=== PATIENT | female | born 1995 | race Caucasian/White ===

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

== ENCOUNTER 2017-01-15 11:36 | Emergency (ER) | payer SELFPAY ==
[2017-01-15 12:19] VITALS: BP 126/74
--- NOTE | 2017-01-15 12:56 | UC ---
Throat Pain/Nasal Vivek HPI - HPI Summary HPI Summary: 21 y/o female presents to the urgent care c/o sore throat, nasal congestion for the past 5 days. Pt reports she has sinus tenderness with mild HOLT. for the past 2 days she has decrease appetite with nausea and 2 episodes of vomiting. LMP 01/11/2017, she still has her period. She states last time she was here with an URI she got IV fluids b/c she was dehydrated with N/V. Her nasal congestion has a yellowish nasal discharge, subjective fever at home and dry cough. Pt denies SOB , chest pain, dizziness, abdominal pain, diarrhea or constipation. - History of Current Complaint Chief Complaint: UCRespiratory Stated Complaint: NAUSEA,DIZZINESS,COUGH Time Seen by Provider: 01/15/17 12:43 Hx Obtained From: Patient Hx Last Menstrual Period: 01/11/17 ?: No Onset/Duration: Gradual Onset, Lasting Days - 5 days Severity: Moderate Pain Intensity: 3 Pain Scale Used: 0-10 Numeric Cough: Nonproductive Associated Signs & Symptoms: Positive: Sinus Discomfort, Nasal Discharge, Fever , Vomiting - Epiglottits Risk Factors Epiglottis Risk Factors: Negative - Allergies/Home Medications Allergies/Adverse Reactions: Allergies Allergy/AdvReac Type Severity Reaction Status Date / Time No Known Allergies Allergy Verified 01/15/17 12:13 Home Medications: Home Medications Vptzhpnextemqbhz-Ibxjtkclqz-VE [Night Time Multi-Symptom 15-6.25-325 mg] 1 cap PO PRN 01/15/17 [History] Dextromethorphan-Phenylephrine [Day Time Multi-Symptom Co 10-5-325 mg] PRN 10/25 [History] PMH/Surg Hx/FS Hx/Imm Hx Previously Healthy: Yes - PT denies PMHX - Surgical History Surgical History: Yes Surgery Procedure, Year, and Place: t/a at age 7-8 yrs - Family History Family History: family history poisitive for asthma and COPD - Social History Occupation: Employed Full-time Lives: With Family Alcohol Use: None Substance Use Type: None Smoking Status (MU): Never Smoked Tobacco - Immunization History Most Recent Influenza Vaccination: NOT IN 2017 Vaccination Up to Date: Yes Review of Systems Constitutional: Fever - subjective at home Skin: Negative Eyes: Negative ENT: Sore Throat, Nasal Discharge, Sinus Congestion Respiratory: Cough - dry Cardiovascular: Negative Gastrointestinal: Negative Genitourinary: Negative Motor: Negative Neurovascular: Negative Musculoskeletal: Negative Neurological: Negative Psychological: Negative Is Patient Immunocompromised?: No All Other Systems Reviewed And Are Negative: Yes Physical Exam Triage Information Reviewed: Yes Vital Signs: Initial Vital Signs Temp 98.3 F 01/15/17 12:14 Pulse 69 01/15/17 12:14 Resp 20 01/15/17 12:14 BP 126/74 01/15/17 12:14 Pulse Ox 100 01/15/17 12:14 - Additional Comments VITAL SIGNS: Reviewed. GENERAL: Patient is a well developed and nourished who is sitting comfortable in the examining table. Patient is not in any acute respiratory distress. HEAD AND FACE: No signs of trauma. No ecchymosis, hematomas or skull depressions. No sinus tenderness. erythematous and edematous nasal congestion w / yellowish nasal discharge EYES: PERRLA, EOMI x 2, No injected conjunctiva with clear watery eyes, no nystagmus. No photophobia. EARS: Hearing grossly intact. Ear canals and tympanic membranes are within normal limits. MOUTH: Positive pharynx with erythema,no exudates, no palatal petechiae. Uvula in midline. NECK: Supple, trachea is midline, Positive anterior cervical lymphadenopathy, no JVD, no carotid bruit, no c-spine tenderness, neck with full ROM. CHEST: Symmetric, no tenderness at palpation LUNGS: Clear to auscultation bilaterally. No wheezing or crackles. CVS: Regular rate and rhythm, S1 and S2 present, no murmurs or gallops appreciated. ABDOMEN: Soft, non-tender. No signs of distention. No rebound no guarding, and no masses palpated. Bowel sounds are normal. EXTREMITIES: FROM in all major joints, no edema, no cyanosis or clubbing. NEURO: Alert and oriented x 3. No acute neurological deficits. Speech is normal and follows commands. SKIN: Dry and warm Throat Pain/Nasal Course/Dx - Course Course Of Treatment: 21 y/o female presents to the urgent care c/o sore throat, nasal congestion for the past 5 days. Pt reports she has sinus tenderness with mild HOLT. for the past 2 days she has decrease appetite with nausea and 2 episodes of vomiting. LMP 01/11/2017, she still has her period. She states last time she was here with an URI she got IV fluids b/c she was dehydrated with N/ V. Her nasal congestion has a yellowish nasal discharge, subjective fever at home and dry cough. Pt denies SOB, chest pain, dizziness, abdominal pain, diarrhea or constipation.Pt with an upper respiratory infection on examination. Pt Rx medications to alleviates symptoms. Pt explained D/C instructions,. Pt understood and agreed and left the clinic ambulating. - Differential Dx/Diagnosis Differential Diagnosis/HQI/PQRI: Influenza, Laryngitis, Mononucleosis, Otitis Media, Pharyngitis, Sinusitis, Tonsillitis, URI, Other - gatroenteririts, Provider Diagnoses: 1- Upper respiratory infection. 2- Nausea and vomiting. Discharge - Discharge Plan Condition: Stable Disposition: HOME Prescriptions: Fluticasone NASAL SPRAY 50MCG* [Flonase NASAL SPRAY 50MCG*] 2 spray BOTH NARES DAILY #1 btl Ibuprofen TAB* [Motrin TAB* 600 MG] 600 mg PO Q6H PRN #20 tab PRN Reason: Sore Throat Ondansetron ODT TAB* [Zofran 4 MG Odt TAB*] 4 mg PO Q6H PRN #12 tab.odt PRN Reason: Nausea/Vomiting Patient Education Materials: Upper Respiratory Infection (ED), Acute Nausea and Vomiting (ED) Referrals: Sherly Avila MD [Primary Care Provider] - If Needed Additional Instructions: 1- Please take zofran PO to alleviate Nausea and vomiting. 2- Please increase fluid intake,Drink Gatorade, eat small portions, avoid strenuous exercise. 2-Please take ibuprofen PO q6-8hrs prn as instructed after meals to alleviate pain and swelling. use the saline drops at home and used the Flonase nasal spray to drain sinuses. 3-If symptoms do not improve or worsen please return to the urgent care or f/u with your PCP for further evaluation and treatment.
== END 2017-01-15 13:35 | disposition home or self-care (01) ==
LOC: UCCORT 11:36
DX: J06.9 Acute upper respiratory infection, unspecified (principal); R11.2 Nausea with vomiting, unspecified
CPT/HCPCS: 87651; 99212; G0463

== ENCOUNTER 2017-06-05 14:58 | Emergency (ER) | payer MEDICAID, OTHER ==
[2017-06-05 17:19] VITALS: BP 109/67
--- NOTE | 2017-06-05 17:34 | UC ---
Knee Pain HPI - HPI Summary HPI Summary: 22 yo female injured her right knee skating yesterday hurts to bear wt pain laterally - History of Current Complaint Chief Complaint: UCLowerExtremity Stated Complaint: RT KNEE PAIN Time Seen by Provider: 06/05/17 17:10 Hx Obtained From: Patient Hx Last Menstrual Period: [id number] Onset/Duration: Sudden Onset, Lasting Hours Severity Initially: Moderate Severity Currently: Moderate Pain Intensity: 6 Pain Scale Used: 0-10 Numeric Character: Aching, Throbbing, Spasmodic Aggravating Factor(s): Movement, Weight Bearing Alleviating Factor(s): Rest Associated Signs And Symptoms: Positive: Negative Able to Bear Weight: Yes - with lump - Allergies/Home Medications Allergies/Adverse Reactions: Allergies Allergy/AdvReac Type Severity Reaction Status Date / Time No Known Allergies Allergy Verified 01/15/17 12:13 Home Medications: Home Medications Naproxen Sodium [Aleve] 220 06/05/17 [History] PMH/Surg Hx/FS Hx/Imm Hx Previously Healthy: Yes - Surgical History Surgical History: Yes Surgery Procedure, Year, and Place: t/a at age 7-8 yrs - Family History Known Family History: Positive: None, Hypertension Negative: Diabetes Family History: family history poisitive for asthma and COPD - Social History Alcohol Use: None Substance Use Type: None Smoking Status (MU): Never Smoked Tobacco - Immunization History Most Recent Influenza Vaccination: NOT IN 2017 Vaccination Up to Date: Yes Review of Systems Constitutional: Negative Skin: Negative Eyes: Negative ENT: Negative Respiratory: Negative Cardiovascular: Negative Gastrointestinal: Negative Genitourinary: Negative Motor: Negative Neurovascular: Negative Musculoskeletal: Arthralgia Neurological: Negative Psychological: Negative Is Patient Immunocompromised?: No All Other Systems Reviewed And Are Negative: Yes Physical Exam Triage Information Reviewed: Yes Appearance: Well-Appearing, No Pain Distress, Well-Nourished Vital Signs: Initial Vital Signs Temp 99.0 F 06/05/17 17:13 Pulse 91 06/05/17 17:13 Resp 16 06/05/17 17:13 BP 109/67 06/05/17 17:13 Pulse Ox 100 06/05/17 17:13 Vital Signs Reviewed: Yes Eyes: Positive: Conjunctiva Clear ENT: Positive: Nasal congestion, Nasal drainage, Uvula midline. Negative: Hearing grossly normal, Muffled voice, Hoarse voice Neck: Positive: Supple, Nontender, No Lymphadenopathy Respiratory: Positive: Lungs clear, Normal breath sounds, No respiratory distress Cardiovascular: Positive: RRR, No Murmur Musculoskeletal: Positive: ROM Intact, No Edema Neurological: Positive: Alert Skin Exam: Normal Diagnostics - Radiology No standard instances Xray Interpretation: No Acute Changes Radiology Interpretation Completed By: ED Physician Knee Pain Course/Dx - Differential Dx/Diagnosis Provider Diagnoses: right knee injury. ?meniscal tear Discharge - Discharge Plan Condition: Stable Disposition: HOME Patient Education Materials: Crutch Instructions (ED), Knee Pain (ED) Forms: *Work Release Referrals: Gary Mckinnon MD [Medical Doctor] - As Soon As Possible Additional Instructions: advil or aleve rest ramana elevate ice crutches see orthopedist first available appt
--- NOTE | 2017-06-05 18:00 | RAD ---
Indication: Right knee pain. 4 views of the right knee demonstrates no fracture. Joint spaces all well-preserved. No joint effusion is noted. IMPRESSION: No fracture of the right knee is present.
== END 2017-06-05 18:03 | disposition home or self-care (01) ==
LOC: UCCORT 14:58
DX: S89.91XA Unspecified injury of right lower leg, initial encounter (principal); Y93.21 Activity, ice skating; Y93.9 Activity, unspecified; Y92.9 Unspecified place or not applicable
CPT/HCPCS: 99213; G0463

== ENCOUNTER 2017-06-20 09:59 | Emergency (ER) | payer OTHER ==
[2017-06-20 10:50] VITALS: BP 117/67
--- NOTE | 2017-06-20 11:23 | UC ---
Skin Complaint HPI - HPI Summary HPI Summary: pt is c/o a rash to her hands forearms and notes it under R breast and around waist. it does itch. boyfriend has the same. the have tx with otc meds and washed everything with no relief. no pets in the home. no new exposures. - History of Current Complaint Time Seen by Provider: 06/20/17 10:48 Stated Complaint: RASH Hx Obtained From: Patient Hx Last Menstrual Period: beginning of the month ?: No Onset/Duration: Gradual Onset, Still Present Timing: Constant Pain Intensity: 0 Aggravating Factor(s): Nothing Alleviating Factor(s): Nothing Associated Signs & Symptoms: Negative: Fever - Allergy/Home Medications Allergies/Adverse Reactions: Allergies Allergy/AdvReac Type Severity Reaction Status Date / Time No Known Allergies Allergy Verified 06/20/17 10:40 Home Medications: Home Medications Acetaminophen 650 mg PO ONCE PRN 06/20/17 [History Confirmed 06/20/17] Review of Systems Constitutional: Negative Skin: Rash Eyes: Negative ENT: Negative Respiratory: Negative Cardiovascular: Negative Gastrointestinal: Negative Genitourinary: Negative Motor: Negative Neurovascular: Negative Musculoskeletal: Negative Neurological: Negative Psychological: Negative Is Patient Immunocompromised?: No All Other Systems Reviewed And Are Negative: Yes PMH/Surg Hx/FS Hx/Imm Hx Previously Healthy: Yes - Surgical History Surgical History: Yes Surgery Procedure, Year, and Place: t/a at age 7-8 yrs - Family History Known Family History: Positive: None, Hypertension Negative: Diabetes Family History: family history poisitive for asthma and COPD - Social History Lives: With Family Alcohol Use: None Substance Use Type: None Smoking Status (MU): Former Smoker When Did the Patient Quit Smoking/Using Tobacco: 2017 - Immunization History Most Recent Influenza Vaccination: NOT IN 2017 Vaccination Up to Date: Yes Physical Exam Triage Information Reviewed: Yes Appearance: Well-Appearing Vital Signs: Initial Vital Signs Temp 97.5 F 06/20/17 10:41 Pulse 77 06/20/17 10:41 Resp 16 06/20/17 10:41 BP 117/67 06/20/17 10:41 Pulse Ox 100 06/20/17 10:41 Vital Signs Reviewed: Yes Eyes: Positive: Conjunctiva Clear ENT: Positive: Normal ENT inspection Neck: Positive: Supple Respiratory: Positive: No respiratory distress Cardiovascular: Positive: RRR Abdomen Description: Positive: Nontender, Soft Musculoskeletal: Positive: ROM Intact Neurological: Positive: Alert Psychological: Positive: Age Appropriate Behavior Skin Exam: Normal, Other - pink spots noted to webs L hand, volar forearms, front of waist and under R breast. no warm, tender, scaley or petechial. Course/Dx - Course Course Of Treatment: no concern for fungal or bacterial rash. it is concerning for possible scabies thus will tx with elimite and close f/u for recheck advised. - Diagnoses Provider Diagnoses: acute rash. possible scabies Discharge - Discharge Plan Condition: Stable Disposition: HOME Prescriptions: Permethrin [Elimite] 60 gm TP ONCE #1 cream..g. Patient Education Materials: Scabies (ED), Acute Rash (ED) Referrals: Sherly Avila MD [Primary Care Provider] - 7 Days
== END 2017-06-20 11:30 | disposition home or self-care (01) ==
LOC: UCCORT 09:59
DX: R21 Rash and other nonspecific skin eruption (principal); Z87.891 Personal history of nicotine dependence
CPT/HCPCS: 99212; G0463

== ENCOUNTER 2017-10-19 05:50 | Day surgery (SDC) | payer OTHER ==
[~2017-10-19 05:50] MED LIST: Buffered Lidocaine 0.9% SYRIN* 5 ML/SYR SYRINGE INTRADERM ONE
[2017-10-19] MEDS ORDERED: Famotidine IV* 10 MG/ML 2 ML (20 mg) IV ONE (06:00)
[2017-10-19] MEDS ORDERED: Dexamethasone IV* 4 MG/ML 1 ML (4 MG) IV SLOW PU ONE (06:00)
[2017-10-19] MEDS ORDERED: Buffered Lidocaine 0.9% SYRIN* 5 ML/SYR SYRINGE ONE (06:07)
[2017-10-19] MEDS ORDERED: Famotidine IV* 10 MG/ML 2 ML (20 mg) ONE (06:07)
[2017-10-19] MEDS ORDERED: ceFAZolin 2 GM PREMIX (*) 2 GM/50 ML BAG IVPB ONE (06:07)
[2017-10-19] MEDS ORDERED: Dexamethasone IV* 4 MG/ML 1 ML (4 MG) ONE (06:07)
[2017-10-19] MEDS ORDERED: fentaNYL* 50 MCG/ML 5 ML VIAL (250 MCG VIAL) ONE (07:06)
[2017-10-19] MEDS ORDERED: Midazolam* 1 MG/ML 5 ML VIAL (5 MG) ONE (07:06)
[2017-10-19] MEDS ORDERED: Atracurium* 10 MG/ML 10 ML VIAL ONE (07:06)
[2017-10-19] MEDS ORDERED: EPHEDrine (Pressors)* 50 MG/ML VIAL ONE (07:10)
[2017-10-19] MEDS ORDERED: Propofol* 10 MG/ML 20 ML BTL IV PUSH ONE (07:10)
[2017-10-19] MEDS ORDERED: Ondansetron INJ* 2 MG/ML VIAL ONE (07:10)
[2017-10-19] MEDS ORDERED: Lidocaine 2% PF * 5 ML VIAL ONE (07:10)
[2017-10-19] MEDS ORDERED: Phenylephrine INJ* 10 MG/ML 1 ML VIAL (10 MG) ONE (07:10)
[2017-10-19] MEDS ORDERED: Bupivacaine 0.5% PF 10 ML VIAL INJ ONE (07:11)
[2017-10-19] MEDS ORDERED: Ketorolac INJ* 30 MG/ML 1 ML VIAL ONE (07:11)
[2017-10-19] MEDS ORDERED: fentaNYL* 50 MCG/ML 2 ML VIAL (100 MCG VIAL) ONE ×4 (07:45→10:12)
[2017-10-19] MEDS ORDERED: HYDROmorphone INJ* 0.5 MG/0.5 ML SYRINGE IV PRN (08:06)
[2017-10-19] MEDS ORDERED: Naloxone* 0.4 MG/ML 1 ML VIAL IV PRN (08:06)
[2017-10-19] MEDS ORDERED: Ondansetron INJ* 2 MG/ML VIAL IV PRN (08:06)
[2017-10-19] MEDS ORDERED: oxyCODONE/Acetamin 5/325 MG* TAB PO PRN (08:06)
[2017-10-19] MEDS ORDERED: DiMENhydriNATE IV* 50 MG/ML VIAL IV PUSH PRN (08:06)
[2017-10-19] MEDS: fentaNYL* 50 MCG/ML 2 ML VIAL (100 MCG VIAL) IV PRN ×3 (09:30→09:45)
--- NOTE | 2017-10-19 09:51 | RAD ---
CPT II Codes: G9500 INDICATION: Arthroscopic labral repair. Fluoroscopic services provided for referring physician. 24.3 seconds of fluoroscopy time was used. Single spot image demonstrates localization of the left hip joint. IMPRESSION: Fluoroscopic services provided for referring physician for osteoplasty and labral repair.
[2017-10-19] MEDS ORDERED: oxyCODONE/Acetamin 5/325 MG* TAB ONE (10:06)
[2017-10-19] MEDS ORDERED: HYDROmorphone INJ* 0.5 MG/0.5 ML SYRINGE ONE (10:25)
[2017-10-19 10:33] VITALS: BP 122/85
--- NOTE | 2017-10-19 23:32 | OP ---
CC: PCP, Sherly Avila MD * DATE OF OPERATION: 10/19/17 - [facility] DATE OF : 97 SURGEON: Clarissa Tan MD SENIOR SAS DEVELOPER: ANTONIA Jeffrey. An casino assistant manager was needed for the entirety of the case to help with positioning, retraction, and was utilized throughout all portions of the case. ANESTHESIOLOGIST: Dr. Patterson. ANESTHESIA: General. PRE-OP DIAGNOSIS: Right hip labral tear with cam impingement and psoas tendonitis. POST-OP DIAGNOSIS: Right hip labral tear with cam impingement and psoas tendonitis. OPERATIVE PROCEDURES: 1. Right hip arthroscopy with labral repair. 2. Cam osteoplasty. 3. Psoas lengthening. COMPLICATIONS: None. ESTIMATED BLOOD LOSS: Minimal. IMPLANTS USED: One QFIX 1.8 mm single loaded. TRACTION TIME: 48 minutes. INDICATIONS: Tonja Aiken is a 22-year-old female who has a right hip pain, was diagnosed with labral tear. She failed conservative management including physical therapy. She refused an injection. Anti-inflammatories did not work for her and she also gave it time. Risks and benefits were discussed at length including, but not limited to, bleeding, infection, damage to surrounding structures, wound nonhealing, persistent pain, need for further surgery, scarring, stiffness, incomplete relief of symptoms, risk of anesthesia, risk of fracture, AVN, nonunion, failure of the repair, risk of DVT, traction injuries as well as risk of anesthesia. She elected to proceed. FINDINGS: The traction provided good access to the hip without evidence of underlying hyperlaxity. Arthroscopic exam showed labral tearing of the anterior portion of the labrum with an unstable flap that was able to be repaired. There were grade 0 changes to the acetabulum, but there was a wave sign at the level of the labral tear. This was from about the 12 o'clock to 2 o 'clock position where the wave sign was present. There were grade 0 changes to the femoral head. DESCRIPTION OF PROCEDURE: The patient was greeted in the preoperative area by the attending surgeon. Correct extremity was marked and consent was confirmed. SIXTO stockings were placed on the nonoperative leg. The patient was brought back to the operating suite where she was placed in supine position on the operating table. She then underwent general anesthesia and endotracheal intubation, after which she was placed in a well-padded boot and positioned in the [employer] traction table with a large well-padded perineal post. The operative site was then placed in a dynamic leg martinez and placed with slight flexion, gentle internal rotation and neutral adduction to bring the femoral neck parallel to the floor. Gentle traction was applied to balance the pelvis to the left hip. The right hip was then prepped and draped in the usual sterile fashion beginning with pre-scrub with chlorhexidine soap and alcohol wipe. After a miniature surgical pause, gross traction was applied to the operative extremity and under sterile condition, an 18-gauge spinal needle was introduced to break the acetabular seal. Once this was done, traction was applied to the hip to distract the joint by 1.5 cm, which was appreciated using the C-arm. The patient was protected during the entirety of the case. Traction was then taken down once the seal was broken. The right hip was then prepped with a final prep with ChloraPrep. After appropriate surgical pause indicating site, side, procedure and administration of antibiotics, the traction was brought up and the timer began. Total traction time was 48 minutes. First, the anterior lateral peritrochanteric portal was accessed using a long spinal needle, which was confirmed under fluoroscopy. Then, the cannula was introduced atraumatically into the joint. The mid anterior portal was then made in similar fashion using needle for localization. Once this was confirmed, the trocar was advanced atraumatically into the joint. A 70-degree scope was then used to identify the head in the labrum. The femur and acetabulum had grade 0 changes. No portal violated the labrum. The labrum had tearing from the 12 o'clock to 2 o'clock position with a wave sign. The [place] blade was then used to do a capsulotomy beginning anteriorly and then connecting laterally. The pump was set to 40 mmHg to provide stable consistent pressure throughout the entirety of the case. After the capsulotomy was made complete, attention was directed to the synovectomy. The synovectomy was carried out using the full radius shaver as well as electrocautery for hemostasis. There was abundant synovitis present. The rim of the acetabulum was carefully visualized and there was a labral tear that was evident. Once the rim was exposed all the way to the AIIS, the 5-5 round dwight was then used to do rim trimming farther laterally. The labrum was then carefully released using a [place] blade and rim trimming was continued. Once the small pincer deformity was resected and the crossover sign was removed as determined by preoperative templating, attempt was made to repair this. The appropriate cannula was placed and the QFIX anchor was drilled in place with excellent purchase. The suture was then passed through the labrum in a simple fashion and tied down. This helped to restore the labrum. Any remaining cartilage fiber was debrided back. Attention was then directed to the psoas. The psoas was then lengthened using the electrocautery device. Fibers of the tendon were identified and then released carefully. Once the tendon was released, the intraarticular work was completed. The traction was released for a total time of 48 minutes. This was confirmed with C-arm. At this point, the femoral head and neck were visualized. Capsulotomy was then T'd to allow for exposure of the cam lesion. Preoperative templating was used as a guide for femoral neck osteoplasty. Using a 5.5 mm round dwight, the resection was done beginning superiorly to laterally and inferiorly to medially. This was monitored using the C-arm to make sure there was elimination as much of the femoral side impingement as possible. The femoral head and neck were normalized. Care was taken to prevent iatrogenic injury to the vessels. Post-resection dynamic testing was done under direct visualization arthroscopically to make sure the cam was removed. At this point , meticulous hemostasis was obtained. The fluid was evacuated from the soft tissues. A spinal needle was then placed under arthroscopic visualization and placed Toradol as well as injectable saline into the joint. The wounds were copiously irrigated with sterile saline. Skin incisions were closed in layers of 2-0 Vicryl and 3-0 nylon. Portals were injected with 0.25% Marcaine plain. Sterile dressings were applied as well as a thigh high SIXTO stockings and Cryo/ Cuff. She was awoken from anesthesia and transferred to PACU in stable condition. POSTOPERATIVE PLAN: She will be 50% weightbearing for 2 weeks. No hip flexion past 90 degrees for those 2 weeks. SIXTO stockings will be worn as well for that time. She will remove the dressings on postop day #3. DVT prophylaxis was considered, but deferred due to no previous personal or family history. She will be discharged on pain medication as well as naproxen 500 mg p.o. b.i.d. for 30 days. I will see the patient back in 10 to 14 days with repeat x-rays of the hip including a Gomez lateral. [id number]/[facility] #: [id number] MTDD
== END 2017-10-19 10:57 | disposition home or self-care (01) ==
LOC: OR 05:50
PROVIDERS: ATTEND Orthopaedic Surgery
DX: M24.151 Other articular cartilage disorders, right hip (principal); M76.11 Psoas tendinitis, right hip; M54.16 Radiculopathy, lumbar region; F17.290 Nicotine dependence, other tobacco product, uncomplicated; F41.9 Anxiety disorder, unspecified; D64.9 Anemia, unspecified
CPT/HCPCS: 81025; A9270-GY; J0690; J1100; J1170; J1885; J2250; J2405; J2704; J3010

== ENCOUNTER 2018-02-01 14:39 | Emergency (ER) | payer OTHER ==
[2018-02-01 14:52] VITALS: BP 128/92
--- NOTE | 2018-02-01 15:31 | UC ---
UC General HPI - HPI Summary HPI Summary: Patient is complaining of chest congestion, wheezing and feeling like it's hard to breathe. She admits to feeling shortness of breath and has been experiencing subjective fever and chills. She quit smoking 4 months ago. She has history of childhood asthma. onset this am. - History of Current Complaint Chief Complaint: UCGeneralIllness Stated Complaint: FEVER,DIZZY,SHORTNESS OF BREATH Time Seen by Provider: 02/01/18 15:18 Hx Obtained From: Patient Hx Last Menstrual Period: 02/02/18 Onset/Duration: Gradual Onset Timing: Constant Pain Intensity: 5 - Allergy/Home Medications Allergies/Adverse Reactions: Allergies Allergy/AdvReac Type Severity Reaction Status Date / Time No Known Allergies Allergy Verified 02/01/18 14:43 PMH/Surg Hx/FS Hx/Imm Hx - Additional Past Medical History Additional PMH: CDA type I - Surgical History Surgical History: Yes Surgery Procedure, Year, and Place: t/a at age 7-8 yrs. 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 RIGHT HIP SURGERY, OCTOBER 19, 2017 - Family History Known Family History: Positive: Hypertension, Other - Hem disorder Negative: Diabetes Family History: family history poisitive for asthma and COPD - Social History Occupation: Employed Full-time Alcohol Use: None Substance Use Type: None Smoking Status (MU): Former Smoker Have You Smoked in the Last Year: Yes When Did the Patient Quit Smoking/Using Tobacco: 10/2017 - Immunization History Most Recent Influenza Vaccination: NOT IN 2017 Vaccination Up to Date: Yes Review of Systems Constitutional: Fever, Chills Skin: Negative Eyes: Negative ENT: Sore Throat Respiratory: Shortness Of Breath, Cough Cardiovascular: Negative Gastrointestinal: Negative Genitourinary: Negative Motor: Negative Neurovascular: Negative Musculoskeletal: Negative Neurological: Headache Psychological: Negative Is Patient Immunocompromised?: No All Other Systems Reviewed And Are Negative: Yes Physical Exam Triage Information Reviewed: Yes Appearance: Well-Appearing Vital Signs: Initial Vital Signs Temp 99.7 F 02/01/18 14:44 Pulse 104 02/01/18 14:44 Resp 16 02/01/18 14:44 BP 128/92 02/01/18 14:44 Pulse Ox 100 02/01/18 14:44 Vital Signs Reviewed: Yes Eyes: Positive: Conjunctiva Clear ENT: Positive: Pharynx normal, TMs normal. Negative: Nasal congestion, Nasal drainage Neck: Positive: Supple, Nontender, No Lymphadenopathy Respiratory: Positive: Lungs clear, No respiratory distress, Decreased breath sounds Cardiovascular: Positive: RRR, No Murmur. Negative: Tachycardia Abdomen Description: Positive: Nontender, No Organomegaly, Soft Bowel Sounds: Positive: Present Musculoskeletal: Positive: ROM Intact, No Edema Neurological: Positive: Alert Psychological: Positive: Age Appropriate Behavior Skin Exam: Normal Diagnostics - Radiology No standard instances Radiology Interpretation Completed By: Radiologist - NO ACTIVE CARDIOPULMONARY DISEASE. - EKG Cardiac Rate: NL Cardiac Rhythm: Sinus: Normal Ectopy: None ST Segment: Normal Re-Evaluation - Re-Evaluation First Eval Re-Evaluation Time: 16:38 Change: Improved - better aeration Course/Dx - Course Course Of Treatment: cxr and ekg unremarkable. - Differential Dx - Multi-Symptom Provider Diagnoses: asthma flare Discharge - Sign-Out/Discharge Documenting (check all that apply): Patient Departure All imaging exams completed and their final reports reviewed: Yes - Discharge Plan Condition: Stable Disposition: HOME Prescriptions: Albuterol HFA INHALER* [Ventolin HFA Inhaler*] 2 puff INH Q6H #1 mdi Azithromycin TAB* [Zithromax TAB (Z-MAIRA) 250 mg #6 tabs] 2 tab PO .TODAY, THEN 1 DAILY #1 maira Patient Education Materials: Asthma (ED) Referrals: Sherly Avila MD [Primary Care Provider] - 5 Days - Billing Disposition and Condition Condition: STABLE Disposition: Home
[2018-02-01] MEDS ORDERED: Albuterol 2.5 MG/3 ML NEB.SOL* (0.083%) INH ONE (16:12)
--- NOTE | 2018-02-01 16:27 | RAD ---
HISTORY: cough, fever, sob COMPARISONS: May 04, 2017 VIEWS: 4: Frontal dual-energy and lateral views of the chest. FINDINGS: CARDIOMEDIASTINAL SILHOUETTE: The cardiomediastinal silhouette is normal. VENITA: The venita are normal. PLEURA: The costophrenic angles are sharp. No pleural abnormalities are noted. LUNG PARENCHYMA: The lungs are clear. ABDOMEN: The upper abdomen is clear. There is no subphrenic gas. BONES AND SOFT TISSUES: No bone or soft tissue abnormalities are noted. OTHER: None. IMPRESSION: NO ACTIVE CARDIOPULMONARY DISEASE.
== END 2018-02-01 16:53 | disposition home or self-care (01) ==
LOC: UCCORT 14:39
DX: J45.909 Unspecified asthma, uncomplicated (principal); Z87.891 Personal history of nicotine dependence
CPT/HCPCS: 71046; 93005; 99212; G0463

== ENCOUNTER 2018-02-09 15:45 | Emergency (ER) | payer OTHER ==
[2018-02-09 16:38] VITALS: BP 129/87
--- NOTE | 2018-02-09 16:51 | ED ---
Throat Pain/Nasal Congestion - HPI Summary HPI Summary: 22 yr old female with the complaint of sore throat, onset this morning, associated with some emesis. She is just starting to get some nasal congestion. No fever. No drooling, No stridor. No other complaints. - History of Current Complaint Chief Complaint: UCGeneralIllness Time Seen by Provider: 02/09/18 16:41 - Allergies/Home Medications Allergies/Adverse Reactions: Allergies Allergy/AdvReac Type Severity Reaction Status Date / Time No Known Allergies Allergy Verified 02/09/18 16:38 PMH/Surg Hx/FS Hx/Imm Hx Endocrine/Hematology History: Reports: Hx Anemia - CDA TYPE 1 Denies: Hx Diabetes Cardiovascular History: Denies: Hx Hypertension, Hx Pacemaker/ICD History: Denies: Hx Renal Disease Musculoskeletal History: Reports: Other Musculoskeletal History - LABRAL TEAR TO RIGHT HIP Sensory History: Reports: Hx Contacts or Glasses - GLASSES Denies: Hx Hearing Aid Opthamlomology History: Reports: Hx Contacts or Glasses - GLASSES Psychiatric History: Reports: Hx Anxiety - no meds, Hx Panic Disorder - ANXIETY - Cancer History Hx Hematologic Symptoms: No Hx Chemotherapy: No Hx Radiation Therapy: No Hx Palliative Cancer Treatment: No - Surgical History Surgery Procedure, Year, and Place: t/a at age 7-8 yrs. 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 RIGHT HIP SURGERY, OCTOBER 19, 2017 Hx Anesthesia Reactions: No Infectious Disease History: No Infectious Disease History: Denies: Traveled Outside the [place] in Last 30 Days - Family History Known Family History: Positive: None, Hypertension, Other - Hem disorder Negative: Diabetes Family History: family history poisitive for asthma and COPD - Social History Alcohol Use: None Hx Substance Use: No Substance Use Type: Reports: None Hx Tobacco Use: No Smoking Status (MU): Former Smoker Have You Smoked in the Last Year: Yes Review of Systems Positive: Sore Throat, Other - nasal congestion Positive: Vomiting, Nausea. Negative: Diarrhea All Other Systems Reviewed And Are Negative: Yes Physical Exam Triage Information Reviewed: Yes Vital Signs On Initial Exam: Initial Vitals Temp Pulse Resp BP Pulse Ox 98.7 F 81 18 129/87 100 02/09/18 16:33 02/09/18 16:33 02/09/18 16:33 02/09/18 16:33 02/09/18 16:33 Vital Signs Reviewed: Yes Appearance: Positive: Well-Appearing, No Pain Distress Skin: Positive: Warm, Skin Color Reflects Adequate Perfusion Head/Face: Positive: Normal Head/Face Inspection Eyes: Positive: EOMI ENT: Positive: Pharyngeal erythema, Nasal congestion, TMs normal, Uvula midline. Negative: Nasal drainage, Trismus, Muffled voice, Hoarse voice Neck: Positive: Nontender Respiratory/Lung Sounds: Positive: Clear to Auscultation, Breath Sounds Present Cardiovascular: Positive: RRR. Negative: Murmur Abdomen Description: Positive: Nontender Musculoskeletal: Positive: Strength/ROM Intact Neurological: Positive: Sensory/Motor Intact, Alert, Oriented to Person Place, Time, CN Intact II-III Psychiatric: Positive: Normal - Gina Coma Scale Best Eye Response: 4 - Spontaneous Best Motor Response: 6 - Obeys Commands Best Verbal Response: 5 - Oriented Coma Scale Total: 15 Diagnostics - Vital Signs Vital Signs Temp Pulse Resp BP Pulse Ox 02/09/18 16:33 98.7 F 81 18 129/87 100 - Laboratory Lab Statement: Any lab studies that have been ordered have been reviewed, and results considered in the medical decision making process. EENT Course/Dx - Course Course Of Treatment: 22 yr old with pharyngitis. Neg rapid strep. DC home. - Diagnoses Provider Diagnoses: Pharyngitis Discharge - Sign-Out/Discharge Documenting (check all that apply): Patient Departure All imaging exams completed and their final reports reviewed: No Studies - Discharge Plan Condition: Good Disposition: HOME Patient Education Materials: Upper Respiratory Infection (ED) Referrals: Peter Zavala MD [Primary Care Provider] - - Billing Disposition and Condition Condition: GOOD Disposition: Home
== END 2018-02-09 17:00 | disposition home or self-care (01) ==
LOC: UCCORT 15:45
DX: J02.9 Acute pharyngitis, unspecified (principal); Z87.891 Personal history of nicotine dependence
CPT/HCPCS: 87651; 99211; G0463

== ENCOUNTER 2018-04-29 09:11 | Emergency (ER) | payer OTHER ==
--- OUTSIDE RECORDS SUMMARY | 2018-04-29 09:17 | XMS REPORT | Continuity of Care Document ---
:1995 External Reference #:[id number] Author Name Dorothy Coto NP Address [address] [place] [address] Care Team Providers Name Role Phone Ursula Rivera PA Primary Care Physician Unavailable Payers Type Date Identification Numbers Payment Provider Subscriber Effective: Policy Number: [id number] [facility] ASHOK Aiken 2017 PayID: [id number] [address] [place] [address] Policy Number: [id number] Medicaid -Jacobus Tonja Aiken PayID: [id number] [address] [place] [address] Advance Directives Description No Information Available Problems Description No Active Problems Family History Date Family Member(s) Problem(s) Comments General maternal grandmother diabetes Father hemochromotosis Father Alive Mother Alive Mother bipolar disorder, not close Social History Type Date Description Comments Sex Female Education Highest level completed, 12th grade Marital Status Legal Status: Never Tobacco Use Reviewed: 04/10/18 Never Smoked Cigars Tobacco Use Reviewed: 04/10/18 Never Smoked A Pipe Smoking Status Reviewed: 04/10/18 Never Smoked A Pipe Tobacco Use Reviewed: 04/10/18 Never Used Smokeless Tobacco ETOH Use Denies alcohol use Tobacco Use Start: Unknown Patient is a current smoker, smokes some days Recreational Drug Use Formerly used Marijuana x 1 month, 1 year regularly ago Tobacco Use Start: Unknown pt quit smoking Feb 2018 Recreational Drug Use Teaching Provided Regarding Naloxone/Narcan Training Available At [facility] Tattoo/Piercing Pierced lower lip Tattoo/Piercing Pierced nasal area Tattoo/Piercing Pierced ears Condom Use Never Contraceptive Methods Current methods include levonorgestrel IUD UNKNOWN 04/10/2018 Never E-Cigarette user Allergies, Adverse Reactions, Alerts Description No Known Drug Allergies Medications Medication Date Status Form Strength Qnty SIG Indications Ordering Provider Sprintec 28 04/10/ Active Tablets 0.25-35mg- 84tabs take one tab Z30.011 In [facility] 2017 mcg daily by MD Darrion mouth at the same time Econtra Ez 04/10/ Active Tablets 1.5mg 1tabs prn dose Z30.012 In [facility] 2017 MD Darrion Sprintec 28 04/10/ Active Tablets 0.25-35mg- 84tabs take one tab Z30.011 In [facility] 2017 mcg daily by MD Darrion mouth at the same time Metronidazole 04/27/ Hx Tablets 500mg 14tabs one tab by N76.0 Isa Lin 2017 - mouth twice Ryanchjacquie, 05/13/ daily x 7 [employer] 2017 days no etoh Cryselle-10/15/ Hx Tablets 0.3-30mg-m 84tabs one tab by Z30.40 In [facility] 2015 - cg mouth daily MD Darrion 04/27/ as directed, 2017 skip placebo pills and continously cycle No Active 10/06/ Hx Karlie Medications 2015 - [facility] 2015 Gabriella / Hx IUD 13.5mg Unknown 0000 - 2017 Medications Administered in Office Medication Date Status Form Strength Qnty SIG Indications Ordering Provider Gabriella 03/10 Administered IUD 13.5mg insert Z30.430 In x one MD Darrion into uterus Emergency 04/10 Administered Injection Dorothy Contraceptive LATONIA Coto Contraceptive 10/15 Administered Injection Isa Lin Pills /2015 Sabino Ornelas NP Immunizations Description No Information Available Vital Signs Date Vital Result Comment 04/10/2018 9:56am BP Systolic 122 mmHg BP Diastolic 87 mmHg Height 61 inches 5'1" Weight 137.00 lb BMI (Body Mass Index) 25.9 kg/m2 05/13/2017 1:43pm BP Systolic 136 mmHg BP Diastolic 76 mmHg Height 60.5 inches 5'0.50" Weight 112.00 lb BMI (Body Mass Index) 21.5 kg/m2 04/27/2017 1:51pm BP Systolic 111 mmHg BP Diastolic 72 mmHg Height 60.5 inches 5'0.50" Weight 114.00 lb BMI (Body Mass Index) 21.9 kg/m2 04/07/2016 9:52am BP Systolic 112 mmHg BP Diastolic 70 mmHg Height 60.5 inches 5'0.50" Weight 113.00 lb BMI (Body Mass Index) 21.7 kg/m2 03/10/2016 3:45pm BP Systolic 130 mmHg 1st Post IUD insert BP Diastolic 70 mmHg 1st Post IUD insert BP Systolic Recheck 120 mmHg 2nd post IUD insert BP Diastolic Recheck 70 mmHg 2nd post IUD insert 03/10/2016 12:51pm BP Systolic 110 mmHg BP Diastolic 70 mmHg Height 60.5 inches 5'0.50" Weight 118.00 lb BMI (Body Mass Index) 22.7 kg/m2 12/23/2015 11:01am BP Systolic 110 mmHg BP Diastolic 60 mmHg Height 61.5 inches 5'1.50" Weight 114.00 lb BMI (Body Mass Index) 21.2 kg/m2 10/16/2015 3:38pm BP Systolic 100 mmHg BP Diastolic 60 mmHg Height 61.5 inches 5'1.50" Weight 115.00 lb BMI (Body Mass Index) 21.4 kg/m2 Last Menstrual Period [id number] 10/07/2015 10:41am BP Systolic 108 mmHg BP Diastolic 68 mmHg Height 61.5 inches 5'1.50" Weight 115.00 lb BMI (Body Mass Index) 21.4 kg/m2 Last Menstrual Period [id number] Results Test Date Facility Test Result H/L Range Note Laboratory test 04/10/2018 [facility] Test neg finding Urine..... Thinprep Pap 05/13/2017 [facility] ASCUS Rare/ Abnormal 1 Market Research Manager W/RFX HPV NegV HR Wet Prep.... 05/13/2017 [facility] WBC Smear 0 Clue Cells Vag Fluid Wet Prep 0 Regina Wet Prep 0 Lactobacillus Wet Prep few Whiff Wet Prep neg. Bacteria Wet Prep n/a PH Wet Prep 6.0 Misc Other Test no trich seen Wet Prep.... 04/27/2017 [facility] WBC Smear few Clue Cells Vag Fluid Wet Prep many Regina Wet Prep 0 Lactobacillus Wet Prep many Whiff Wet Prep weak Bacteria Wet Prep n/a PH Wet Prep 7.0 Misc Other Test no trich seen Laboratory test 04/27/2017 [facility] C.Trachomatis NOT DETECTED Not Detected 2 finding Rna,Tma W/RFX N.Gonorrhoeae Rna,Tma Urinalysis DIP 04/07/2016 [facility] Urine Leukocyte N Only.... Esterase QN Urine Nitrite QN N Urine Blood + Urine PH 6.0 Urine Protein Random N Urine Ketone Random N Urine Glucose QN Random N Urinalysis DIP Only.... 03/10/2016 [facility] Urine Leukocyte Esterase QN N Urine Nitrite QN N Urine Blood ++++ Urine PH 7.0 Urine Protein Random tr Urine Ketone Random N Urine Glucose QN Random N Laboratory test 03/10/2016 [facility] Test neg finding Urine..... Laboratory test 03/10/2016 [facility] C.Trachomatis NOT DETECTED Not Detected 3 finding Rna,Tma W/RFX N.Gonorrhoeae Rna,Tma Thinprep Pap 03/10/2016 [facility] Results SEE NOTE Abnormal 4 Market Research Manager W/RFX HPV Mrna E6/E7 Urinalysis DIP 12/23/2015 [facility] Urine Protein N Only.... Random Urine Glucose QN Random N Laboratory test finding 12/23/2015 [facility] Test Urine..... neg Urinalysis DIP Only.... 10/16/2015 [facility] Urine Leukocyte Esterase QN N Urine Nitrite QN N Urine Blood ++ on menses Urine PH 7.0 Urine Protein Random tr Urine Ketone Random N Urine Glucose QN Random N Laboratory test finding 10/16/2015 [facility] Test Urine..... neg Urinalysis DIP Only.... 10/07/2015 [facility] Urine Protein Random neg Urine Glucose QN Random neg Laboratory test finding 10/07/2015 [facility] Test Urine..... neg 1 GYNECOLOGICAL CYTOLOGY REPORT Thinprep TIS PAP w/rfx to HPV E6/E7 REPORT STATUS: FINAL CLINICAL INFORMATION: Information not provided SLIDES / SOURCE: 1 / Information not provided STATEMENT OF ADEQUACY: Satisfactory for evaluation. Endocervical/transformation zone component present. GENERAL CATEGORIZATION: EPITHELIAL CELL ABNORMALITY INTERPRETATION/RESULT: Atypical Squamous Cells of Undetermined Significance (ASC-US), rare and borderline. COMMENT: This Pap test has been evaluated with computer assisted technology. PICK UP MAN: VERONICA MENDEZ([facility]) For informational Purposes: [facility] cytology specimens [facility] [address] [place] [id number] PATHOLOGIST: Martha Jackson MD, Board Certified in Anatomic and Clinical Pathology, Cytopathology, Pediatric Pathology (electronic signature) For questions regarding this report call Anatomic Pathology at [phone] HPV mRNA E6/E7 HPV mRNA E6E7 Not Detected REFERENCE RANGE: NOT DETECTED This test was performed using the APTIMA HPV Assay ([employer] This assay detects E6/E7 viral messenger RNA (mRNA) from 14 high-risk HPV types (16,18,31,33,35,39,45,51,52,56,58,59,66,68). 2 This test was performed using the APTIMA COMBO2(R) Assay ([employer](R). The analytical performance characteristics of this assay, when used to test SurePath(R) specimens have been determined by [facility]. 3 This test was performed using the APTIMA COMBO2(R) Assay ([facility]BE(R). The analytical performance characteristics of this assay, when used to test SurePath(R) specimens have been determined by [facility]. 4 GYNECOLOGICAL CYTOLOGY REPORT Thinprep TIS PAP w/rfx to HPV E6/E7 REPORT STATUS: FINAL CLINICAL INFORMATION: Information not provided SLIDES / SOURCE: 2 / Information not provided STATEMENT OF ADEQUACY: Satisfactory for evaluation. Endocervical/transformation zone component present. GENERAL CATEGORIZATION: EPITHELIAL CELL ABNORMALITY INTERPRETATION/RESULT: Atypical Squamous Cells of Undetermined Significance (ASC-US), rare. Bordering to reactive. COMMENT: This case could not be evaluated with computer assisted technology. The slide was manually screened according to routine procedures. PICK UP MAN: VERONICA LING([facility]) For informational Purposes: All cytology specimens are processed and screened at [facility]. [address] [place] [address] PATHOLOGIST: Herminio Solis MD, PhD, ALICIA Board Certified in Anatomic and Clinical Pathology Board Certified in Cytopathology (electronic signature) For questions regarding this report call Anatomic Pathology at [phone] HPV mRNA E6/E7 HPV mRNA E6E7 Detected REFERENCE RANGE: NOT DETECTED This test was performed using the APTIMA HPV Assay ([employer] This assay detects E6/E7 viral messenger RNA (mRNA) from 14 high-risk HPV types (16,18,31,33,35,39,45,51,52,56,58,59,66,68). For more information on the limitations of this test, visit: [email or web address]/testcenter/ testguide.action?[email or web address]_TMA Procedures Date Code Description Status 03/10/2016 29154 Insert Intrauterine Device Completed Encounters Description No Information Available Plan of Treatment Future Appointment(s):06/12/2018 9:00 am - [facility]PER[facility] at [facility]04/10/2018 - Dorothy Coto, NPZ30.431 Encounter for routine checking of intrauterine contraceptive sgosvmF05.011 Encounter for initial prescription of contraceptive pillsNew Medication:Sprintec 28 0.25-35 mg-mcg - take one tab daily by mouth at the same timeSprintec 28 0.25-35 mg-mcg - take one tab daily by mouth at the same timeComments:Start OBC this Tuesday , use back up method for 7 days after starting on Tuesday. Call for any shortness of breath, chest, leg, or arm pain that is sudden and severe. Call for abnormal bleedingFollow up:Follow 2 noxihvV08.5 Secondary ixnwxnprvheaD40.3 Encounter for screening for infections with a predominantly sexual mode of transmissionFollow up:Follow up if any further symptoms.Z30.012 Encounter for prescription of emergency contraceptionNew Medication:Econtra Ez 1.5 mg - prn doseZ32.02 Encounter for test, result negative
[2018-04-29 09:35] VITALS: BP 111/71
--- NOTE | 2018-04-29 10:05 | UC ---
UC General HPI - HPI Summary HPI Summary: yesterday HOLT, nausea and sore . today ongoing symptoms plus vomited once. - History of Current Complaint Chief Complaint: UCGeneralIllness Stated Complaint: ST/VOMITING/CONGESTION Time Seen by Provider: 04/29/18 09:51 Hx Obtained From: Patient Hx Last Menstrual Period: 03/11/18 Onset/Duration: Sudden Onset Timing: Constant Pain Intensity: 6 Associated Signs & Symptoms: Negative: Abdominal Pain, Diarrhea - Allergy/Home Medications Allergies/Adverse Reactions: Allergies Allergy/AdvReac Type Severity Reaction Status Date / Time No Known Allergies Allergy Verified 04/29/18 09:32 Home Medications: Home Medications Citalopram TAB* [CeleXA TAB*] 10 mg PO DAILY 04/29/18 [History Confirmed ] Omeprazole 20 mg PO DAILY 04/29/18 [History Confirmed 04/29/18] Oral Contraceptive 1 tab PO DAILY 04/29/18 [History Confirmed 04/29/18] PMH/Surg Hx/FS Hx/Imm Hx GI/ History: Gastroesophageal Reflux Psychological History: Depression - Surgical History Surgical History: Yes Surgery Procedure, Year, and Place: t/a at age 7-8 yrs. 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 RIGHT HIP SURGERY, OCTOBER 19, 2017 - Family History Known Family History: Positive: None, Hypertension, Other - Hem disorder Negative: Diabetes Family History: family history poisitive for asthma and COPD - Social History Alcohol Use: None Substance Use Type: None Smoking Status (MU): Former Smoker Have You Smoked in the Last Year: Yes When Did the Patient Quit Smoking/Using Tobacco: 10/2017 - Immunization History Most Recent Influenza Vaccination: NOT IN 2017 Vaccination Up to Date: Yes Review of Systems All Other Systems Reviewed And Are Negative: Yes Constitutional: Positive: Negative Skin: Positive: Negative Eyes: Positive: Negative Respiratory: Positive: Negative Cardiovascular: Positive: Negative Genitourinary: Positive: Negative Motor: Positive: Negative Neurovascular: Positive: Negative Musculoskeletal: Positive: Negative Psychological: Positive: Negative Physical Exam Triage Information Reviewed: Yes Appearance: Well-Appearing Vital Signs: Initial Vital Signs Temp 98.5 F 04/29/18 09:31 Pulse 80 04/29/18 09:31 Resp 14 04/29/18 09:31 BP 111/71 04/29/18 09:31 Pulse Ox 100 04/29/18 09:31 Vital Signs Reviewed: Yes Eyes: Positive: Conjunctiva Clear ENT: Positive: Pharyngeal erythema - scant, TMs normal. Negative: Nasal congestion, Nasal drainage Neck: Positive: Supple, Enlarged Nodes @ - peritonsilar Respiratory: Positive: Lungs clear, Normal breath sounds Cardiovascular: Positive: RRR, No Murmur Abdomen Description: Positive: Nontender, No Organomegaly, Soft Bowel Sounds: Positive: Present Musculoskeletal: Positive: ROM Intact Neurological: Positive: Alert Psychological: Positive: Age Appropriate Behavior Skin Exam: Normal Diagnostics - Laboratory Diagnostic Studies Completed/Ordered: rapid strep=neg. rapid flu=negative Course/Dx - Differential Dx - Multi-Symptom Differential Diagnoses: Other - strep throat, influenza, viral syndrom. - Diagnoses Provider Diagnosis: Viral syndrome Discharge - Sign-Out/Discharge Documenting (check all that apply): Patient Departure All imaging exams completed and their final reports reviewed: No Studies - Discharge Plan Condition: Stable Disposition: HOME Patient Education Materials: Viral Syndrome (ED) Forms: *Work Release Referrals: Ursula Rivera PA [Primary Care Provider] - If Needed Additional Instructions: FOLLOW UP IF NOT BETTER IN A DAY OR TWO. FOLLOW UP SOONER FOR ANY WORSENING. - Billing Disposition and Condition Condition: STABLE Disposition: Home - Attestation Statements Provider Attestation: I was available for consult. This patient was seen by the NATHANIEL. The patient was not presented to, seen by, or examined by me. EK
== END 2018-04-29 10:40 | disposition home or self-care (01) ==
LOC: UCCORT 09:11
DX: B34.9 Viral infection, unspecified (principal); F32.9 Major depressive disorder, single episode, unspecified; K21.9 Gastro-esophageal reflux disease without esophagitis; Z87.891 Personal history of nicotine dependence
CPT/HCPCS: 87651; 99211; G0463

== ENCOUNTER 2018-09-17 11:30 | Emergency (ER) | payer OTHER ==
--- OUTSIDE RECORDS SUMMARY | 2018-09-17 11:37 | XMS REPORT | Continuity of Care Document ---
:1995 External Reference #:[id number] Author Name Dorothy Coto NP Address [address] [place] [address] Care Team Providers Name Role Phone Ursula Rivera PA Primary Care Physician Unavailable Payers Date Identification Numbers Payment Provider Subscriber Effective: 2017 Policy Number: [id number] [employer] [facility] Tonja Aiken Group Name: [employer] [address] PayID: [id number] [place] [address] Policy Number: [id number] Medicaid -[place] Tonja Aiken PayID: [id number] [address] [place] [address] Problems Active Problems Provider Date Atypical squamous cells of undetermined Dorothy Coto NP Onset: 08/31/2018 significance on vaginal Papanicolaou smear Family History Date Family Member(s) Observation Comments General Uterine Cancer General maternal grandmother diabetes Father hemochromotosis Father [...] Denies alcohol use Tobacco Use Start: Unknown pt quit smoking Feb 2018 Recreational Drug Use Formerly used Marijuana x 1 month, 1 year regularly ago Recreational Drug Use Teaching Provided Regarding Naloxone/Narcan Training Available At [facility] Tattoo/Piercing Pierced lower lip Tattoo/Piercing Pierced nasal area Tattoo/Piercing Pierced ears Condom Use Never Contraceptive Methods Current methods include levonorgestrel IUD UNKNOWN 04/10/2018 Never E-Cigarette user Allergies, Adverse Reactions, Alerts Description No Known Drug Allergies Medications Active Medications SIG Qnty Indications Ordering Provider Date Sprintec 28 take one tab 84tabs Z30.41 In Dustin Maier MD 08/31/2018 0.25-35mg-mcg daily by mouth Tablets at the same time Sprintec 28 take one tab 28tabs Z30.011 In Dustin Maier MD 04/10/2018 0.25-35mg-mcg daily by mouth Tablets at the same time Sprintec 28 take one tab 84tabs Z30.011 In Dustin Maier MD 04/10/2018 0.25-35mg-mcg daily by mouth Tablets at the same time Citalopram Unknown Hydrobromide Omeprazole/Sodium Unknown Bicarbonate History Medications Econtra Ez prn dose 1tabs Z30.012 In Dustin Maier MD 04/10/2018 - 1.5mg 08/31/2018 Tablets Metronidazole one tab by mouth 14tabs N76.0 Isa Lin 04/27/2017 - 500mg twice daily x 7 LATONIA Ornelas 05/13/2017 Tablets days no etoh Cryselle-28 one tab by mouth 84tabs Z30.40 In Dustin Maier MD 10/16/2015 - daily as directed, 04/27/2017 0.3-30mg-mcg Tablets skip placebo pills and continously cycle No Active Medications Karlie Sharp 10/07/2015 - 10/16/2015 Gabriella Unknown - 13.5mg IUD 04/10/2018 Medications Administered in Office Medication SIG Qnty Indications Ordering Provider Date Gabriella insert x one Z30.430 In Dustin Maier MD 03/10/2016 13.5mg IUD into uterus Contraceptive Pills Dorothy Coto NP 04/10/2018 Control Injection Emergency Contraceptive Dorothy Coto NP 04/10/2018 Injection Contraceptive Pills Isa Ornelas NP 10/16/2015 Control Injection Vital Signs Date Vital Result Comment 08/31/2018 4:39pm BP Systolic 124 mmHg BP Diastolic 84 mmHg Height 61 inches 5'1" Weight 140.00 lb BMI (Body Mass Index) 26.4 kg/m2 04/10/2018 9:56am BP Systolic 122 mmHg BP [...] Mass Index) 21.4 kg/m2 Last Menstrual Period [id number] 10/07/2015 10:41am BP Systolic 108 mmHg BP Diastolic 68 mmHg Height 61.5 inches 5'1.50" Weight 115.00 lb BMI (Body Mass Index) 21.4 kg/m2 Last Menstrual Period [id number] Results Test Date Facility Test Result H/L Range Note Chlamydia/N 04/10/[address] [facility] [address],Rna,Tma, NOT DETECTED Not Detected 1, 2 Gonorroeae Rna Tma Urogenital Urogenit GC Rna,Tma,Urogen NOT DETECTED Not Detected 3 Laboratory test 04/10/2018 [facility] Test neg finding Urine..... Thinprep Pap Double Cut Sawyer 05/13/2017 [facility] Results ASCUS Rare/ Abnormal 4 W/RFX HPV HR NegV Wet Prep.... 05/13/2017 [facility] WBC Smear 0 Clue Cells Vag Fluid Wet Prep 0 Regina Wet Prep 0 Lactobacillus Wet Prep few Whiff Wet Prep neg. Bacteria Wet Prep n/a PH Wet Prep 6.0 Misc Other Test no trich seen Wet Prep.... 04/27/2017 [facility] WBC Smear few Clue Cells Vag Fluid Wet Prep many Regina Wet Prep 0 Lactobacillus Wet Prep many Whiff Wet Prep weak Bacteria Wet Prep n/a PH Wet Prep 7.0 Misc Other Test no trich seen Laboratory test 04/27/2017 [facility] C.Trachomatis NOT DETECTED Not Detected 5 finding Rna,Tma W/RFX N.Gonorrhoeae Rna,Tma Urinalysis DIP 04/07/2016 [facility] Urine Leukocyte N Only.... Esterase QN Urine Nitrite QN N Urine Blood + Urine PH 6.0 Urine Protein Random N Urine Ketone Random N Urine Glucose QN Random N Urinalysis DIP Only.... 03/10/2016 [facility] Urine Leukocyte Esterase QN N Urine Nitrite QN N Urine Blood ++++ Urine PH 7.0 Urine Protein Random tr Urine Ketone Random N Urine Glucose QN Random N Laboratory test 03/10/2016 [facility] Test neg finding Urine..... Laboratory test 03/10/2016 [facility] C.Trachomatis NOT DETECTED Not Detected 6 finding Rna,Tma W/RFX N.Gonorrhoeae Rna,Tma Thinprep Pap 03/10/2016 [facility] Results SEE NOTE Abnormal 7 Double Cut Sawyer W/RFX HPV Mrna E6/E7 Urinalysis DIP 12/23/2015 [facility] Urine Protein N Only.... Random Urine Glucose QN Random N Laboratory test finding 12/23/2015 [facility] Test Urine..... neg Urinalysis DIP Only.... 10/16/2015 [facility] Urine Leukocyte Esterase QN N Urine Nitrite QN N Urine Blood ++ on menses Urine PH 7.0 Urine Protein Random tr Urine Ketone Random N Urine Glucose QN Random N Laboratory test finding 10/16/2015 [facility] Test Urine..... neg Urinalysis DIP Only.... 10/07/2015 [facility] Urine Protein Random neg Urine Glucose QN Random neg Laboratory test finding 10/07/2015 [facility] Test Urine..... neg 1 URINE 2 This test was performed using the APTIMA COMBO2(R) Assay (GEN-PROBE(R). The analytical performance characteristics of this assay, when used to test SurePath(R) specimens have been determined by [facility]. 3 This test was performed using the APTIMA COMBO2(R) Assay (GEN-PROBE(R). The analytical performance characteristics of this assay, when used to test SurePath(R) specimens have been determined by [employer]. 4 GYNECOLOGICAL CYTOLOGY REPORT Thinprep TIS PAP [...] has been evaluated with computer assisted technology. PHILOSOPHY SPECIALIST: VERONICA MENDEZ(ASCP) For informational Purposes: All cytology specimens are processed and screened at [facility]. [address] [place] [id number] PATHOLOGIST: Matrha Jackson MD, Board Certified in Anatomic and Clinical Pathology, Cytopathology, Pediatric Pathology (electronic signature) For questions regarding this report call Anatomic Pathology at [phone] HPV mRNA E6/E7 HPV mRNA E6E7 Not Detected REFERENCE RANGE: NOT DETECTED This test was performed using the APTIMA HPV Assay ([employer] This assay detects E6/E7 viral messenger RNA (mRNA) from 14 high-risk HPV types (16,18,31,33,35,39,45,51,52,56,58,59,66,68). 5 This test was performed using the APTIMA COMBO2(R) Assay (GEN-PROBE(R). The analytical performance characteristics of this assay, when used to test SurePath(R) specimens have been determined by [employer]. 6 This test was performed using the APTIMA COMBO2(R) Assay (GEN-PROBE(R). The analytical performance characteristics of this assay, when used to test SurePath(R) specimens have been determined by [employer] [facility]. 7 GYNECOLOGICAL CYTOLOGY REPORT Thinprep TIS PAP w/rfx [...] was manually screened according to routine procedures. PHILOSOPHY SPECIALIST: VERONICA LING(ASC) For informational Purposes: [facility] [place]. [address] [place] [id number] PATHOLOGIST: Herminio Solis MD, PhD, ALICIA Board Certified in Anatomic and Clinical Pathology Board Certified in Cytopathology (electronic signature) For questions regarding this report call Anatomic Pathology at [phone] HPV mRNA E6/E7 HPV mRNA E6E7 Detected REFERENCE RANGE: NOT DETECTED This test was performed using the APTIMA HPV Assay ([employer] This assay detects E6/E7 viral messenger RNA (mRNA) from 14 high-risk HPV types (16,18,31,33,35,39,45,51,52,56,58,59,66,68). For more information on the limitations of this test, visit: http://[email or web address].it.[employer]/testcenter/ testguide.action?[email or web address]_[email or web address]_TMA Procedures Date Code Description Status 04/10/2018 05919 Remove Intrauterine Device Completed 03/10/2016 74001 Insert Intrauterine Device Completed Plan of Treatment 08/31/2018 - Dorothy Coto, NPZ01.419 Encounter for gynecological examination ( general) (routine) without abnormal findingsComments:Reviewed healthy diet, exercise and safety with patient who states understanding.Counseled on Preventive , STI Awareness, Seat Belt Use, and Self Breast ExamFollow up:F/u in one year for annual. Sooner prn any concerns.Z12.4 Encounter for screening for malignant neoplasm of ciynbeQ36.41 Encounter for surveillance of contraceptive pillsNew Medication:Sprintec 28 0.25-35 mg-mcg - take one tab daily by mouth at the same timeR87.620 Atypical squamous cells of undetermined significance on cytologic smear of vagina (Asc-US)
[2018-09-17 11:49] VITALS: BP 128/78
--- NOTE | 2018-09-17 12:09 | UC ---
Lower Extremity/Ankle HPI - HPI Summary HPI Summary: 23-year-old female presents with 2 day history of nontraumatic left lateral foot and posterior ankle pain. States she was on her feet a lot helping a friend move prior to the onset of pain. Denies erythema, ecchymosis, edema, numbness, or tingling. - History of Current Complaint Chief Complaint: UCLowerExtremity Stated Complaint: LEFT ANKLE INJURY Time Seen by Provider: 09/17/18 12:03 Hx Obtained From: Patient Hx Last Menstrual Period: September 01 Pain Intensity: 7 - Allergies/Home Medications Allergies/Adverse Reactions: Allergies Allergy/AdvReac Type Severity Reaction Status Date / Time No Known Allergies Allergy Verified 09/17/18 11:49 PMH/Surg Hx/FS Hx/Imm Hx Previously Healthy: Yes GI/ History: Gastroesophageal Reflux Psychological History: Depression - Surgical History Surgical History: Yes Surgery Procedure, Year, and Place: t/a at age 7-8 yrs. 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 RIGHT HIP SURGERY, OCTOBER 19, 2017 - Family History Known Family History: Positive: Hypertension, Other - Hem disorder Negative: Diabetes Family History: family history poisitive for asthma and COPD - Social History Occupation: Employed Full-time Lives: Alone Alcohol Use: Rare Substance Use Type: None Smoking Status (MU): Former Smoker Have You Smoked in the Last Year: Yes When Did the Patient Quit Smoking/Using Tobacco: 10/2017 - Immunization History Most Recent Influenza Vaccination: NOT IN 2017 Vaccination Up to Date: Yes Review of Systems All Other Systems Reviewed And Are Negative: Yes Constitutional: Negative: Fever, Chills Skin: Negative: Rash, Bruising Respiratory: Negative: Shortness Of Breath, Cough Cardiovascular: Positive: Negative Gastrointestinal: Positive: Negative Genitourinary: Positive: Negative Motor: Negative: Weakness Neurovascular: Negative: Decreased Sensation Musculoskeletal: Positive: Other: - See HPI Neurological: Positive: Negative Is Patient Immunocompromised?: No Physical Exam - Summary Physical Exam Summary: GENERAL APPEARANCE: Well developed, well nourished, alert and cooperative, and appears to be in no acute distress. CARDIAC: Normal S1 and S2. No S3, S4 or murmurs. Rhythm is regular. There is no peripheral edema, cyanosis or pallor. Extremities are warm and well perfused. Capillary refill is less than 2 seconds. Peripheral pulses intact. LUNGS: Clear to auscultation without rales, rhonchi, wheezing or diminished breath sounds. ABDOMEN: Positive bowel sounds. Soft, nondistended, nontender. No guarding or rebound. No masses or hepatosplenomegally. MUSKULOSKELETAL: Normal muscular development. Normal gait. EXTREMITIES: Tenderness to the proximal lateral foot just below the lateral malleolus and achilles tendon without erythema, ecchymosis, or edema. Full ROM. Pain with dorsiflexion and inversion. Circulation and sensation intact. Calf supple and nontender without erythema or edema. SKIN: Skin normal color, texture and turgor with no lesions or eruptions. Triage Information Reviewed: Yes Vital Signs: Initial Vital Signs Temp 98.9 F 09/17/18 11:42 Pulse 91 09/17/18 11:42 Resp 18 09/17/18 11:42 BP 128/78 09/17/18 11:42 Pulse Ox 99 09/17/18 11:42 Vital Signs Reviewed: Yes Lower Extremity Course/Dx - Course Course Of Treatment: 23-year-old female presents with 2 day history of nontraumatic left lateral foot and posterior ankle pain. States she was on her feet a lot helping a friend move prior to the onset of pain. Denies erythema, ecchymosis, edema, numbness, or tingling. Afebrile. Vital signs stable. Patient had tenderness to the proximal lateral foot just below the lateral malleolus and achilles tendon without erythema, ecchymosis, or edema. Full ROM. Pain with dorsiflexion and inversion. Circulation and sensation intact. Calf supple and nontender without erythema or edema. Discussed with the patient that with her history of nontraumatic pain and based on her exam I suspect that she has some tendinitis have not recommended x-ray at this time. Patient was placed in a CAM boot by the RN. Circulation and sensation intact pre-and post-application. Recommending conservative treatment with naproxen 500 mg twice a day 5 days then as needed as well as RICE. She is to follow-up with orthopedic surgery in 5 days if symptoms are not improving. Anticipatory guidance and warning symptoms were reviewed with the patient. Verbalizes understanding of care. - Differential Dx/Diagnosis Differential Diagnosis/HQI/PQRI: Contusion, Phlebitis, Sprain, Tendonitis Provider Diagnosis: Left ankle tendonitis Discharge - Sign-Out/Discharge Documenting (check all that apply): Patient Departure All imaging exams completed and their final reports reviewed: No Studies - Discharge Plan Condition: Stable Disposition: HOME Prescriptions: Naproxen [Naproxen 500 mg tab] 500 mg PO Q12HR #30 tablet Patient Education Materials: Tendinitis (ED) Forms: *Work Release Referrals: Ursula Rivera PA [Primary Care Provider] - Gary Mckinnon MD [Medical Doctor] - 7 Days (Call for appointment.) Additional Instructions: Based on your history and exam I suspect that you have tendinitis of the ankle. Rest the ankle as much as possible. You may continue to to walk and bear weight as tolerated. Use the CAM boot that was applied in the clinic until you are pain free. You may remove to sleep and shower but should wear at all other times. Apply ice to the affected area for 15-20 minutes at least 4 times a day to help with the pain and swelling. Elevate the leg to help reduce swelling. Take naproxen 500 mg 1 tab every 12 hours with food for the next 5 days then may take every 12 hours as needed for pain. Follow up with orthopedic surgery in 7 days if symptoms do not improve. Call for an appointment. Seek immediate medical attention if you have severe pain not managed with pain medication, you are unable to walk or bear any weight, develop numbness or tingling in the foot or toes, or have any worsening of symptoms. - Billing Disposition and Condition Condition: STABLE Disposition: Home - Attestation Statements Provider Attestation: Per institutional requirements, I have reviewed the chart, however, I was not consulted specifically or made aware of this patient by the midlevel provider. I did not personally evaluate, interact with , or disposition this patient.
== END 2018-09-17 12:41 | disposition home or self-care (01) ==
LOC: UCCORT 11:30
DX: M77.9 Enthesopathy, unspecified (principal); M25.572 Pain in left ankle and joints of left foot; Z87.891 Personal history of nicotine dependence
CPT/HCPCS: 99212; G0463

== ENCOUNTER 2018-11-26 13:14 | Emergency (ER) | payer OTHER ==
[2018-11-26 13:38] VITALS: BP 115/70
--- NOTE | 2018-11-26 14:20 | UC ---
Abdominal Pain Female HPI - HPI Summary HPI Summary: Pt presents with c/o sudden onset of fever, nausea and HOLT that began this morning at 0700. Pt states that she has a history of GI "issues" and is scheduled for an endoscopy on 12/19/[address] Manuel. She takes omeprazole PO daily for symptom management. Pt states today is different as she had a fever. Denies hemoptysis, or pain. Just states she feels tired and "yucky".Pt also c/o small, tender "bite" to posterior left calf. - History of Current Complaint Chief Complaint: UCGI Stated Complaint: FEVER VOMITING CONGESTION GROGGY Time Seen by Provider: 11/26/18 13:30 Hx Obtained From: Patient Hx Last Menstrual Period: 10/31/18 ?: No Onset/Duration: Sudden Onset, Resolved Timing: Constant Severity Initially: Moderate Severity Currently: Mild Pain Intensity: 5 Character: Not Applicable Aggravating Factor(s): Other: Alleviating Factor(s): Antacids, Other: - drinkin gmilk Associated Signs and Symptoms: Positive: Fever, Nausea, Vomiting - Risk Factors Ectopic Risk Factor: Negative Ovarian Torsion Risk Factor: Reproductive Age Allergies/Adverse Reactions: Allergies Allergy/AdvReac Type Severity Reaction Status Date / Time medical tape Allergy Rash Uncoded 11/26/18 13:40 PMH/Surg Hx/FS Hx/Imm Hx Previously Healthy: Yes GI/ History: Gastroesophageal Reflux, Other - constipation - Surgical History Surgical History: Yes Surgery Procedure, Year, and Place: t/a at age 7-8 yrs,. BONE MARROW REMOVED AT AGE 12 TO DX CDA TYPE 1 [place]. RIGHT HIP SURGERY, OCTOBER 19, 2017 - Family History Known Family History: Positive: Hypertension, Other - Hem disorder Negative: Diabetes Family History: family history poisitive for asthma and COPD - Social History Occupation: Employed Full-time Lives: With Family Alcohol Use: Rare Substance Use Type: None Smoking Status (MU): Former Smoker Have You Smoked in the Last Year: Yes When Did the Patient Quit Smoking/Using Tobacco: 10/2017 - Immunization History Most Recent Influenza Vaccination: NOT IN 2017 Vaccination Up to Date: Yes Review of Systems All Other Systems Reviewed And Are Negative: Yes Constitutional: Positive: Fever, Fatigue Skin: Positive: Negative Eyes: Positive: Negative ENT: Positive: Negative Respiratory: Positive: Negative Cardiovascular: Positive: Negative Gastrointestinal: Positive: Abdominal Pain, Vomiting, Nausea Genitourinary: Positive: Negative Motor: Positive: Negative Neurovascular: Positive: Negative Musculoskeletal: Positive: Arthralgia Neurological: Positive: Headache Psychological: Positive: Negative Is Patient Immunocompromised?: No Physical Exam Triage Information Reviewed: Yes Appearance: Well-Appearing Vital Signs: Initial Vital Signs Temp 98.9 F 11/26/18 13:30 Pulse 83 11/26/18 13:30 Resp 20 11/26/18 13:30 BP 115/70 11/26/18 13:30 Pulse Ox 99 11/26/18 13:30 Vital Signs Reviewed: Yes Eye Exam: Normal ENT Exam: Normal Dental Exam: Normal Neck exam: Normal Respiratory Exam: Normal Cardiovascular Exam: Normal Abdominal Exam: Normal Abdomen Description: Positive: Nontender Musculoskeletal Exam: Normal Neurological Exam: Normal Psychological Exam: Normal Skin Exam: Other - small insect bite appearance left posterior calf, mild erythema, no discharge. Abd Pain Female Course/Dx - Differential Dx/Diagnosis Differential Diagnosis: Constipation, Irritable Bowel Syndrome, Peptic Ulcer Disease Provider Diagnosis: Nausea & vomiting, Fever, Healing wound Discharge - Sign-Out/Discharge Documenting (check all that apply): Patient Departure All imaging exams completed and their final reports reviewed: No Studies - Discharge Plan Condition: Stable Disposition: HOME Prescriptions: Ondansetron HCl [Zofran 4 MG TAB] 4 mg PO Q8H PRN #9 tab PRN Reason: Nausea Patient Education Materials: Acute Nausea and Vomiting (ED), Acute Wounds (ED) Forms: *Work Release Referrals: Johan Manuel MD [Medical Doctor] - 12/19/18 Ursula Rivera PA [Primary Care Provider] - If Needed - Billing Disposition and Condition Condition: STABLE Disposition: Home
== END 2018-11-26 14:10 | disposition home or self-care (01) ==
LOC: UCCORT 13:14
DX: R11.2 Nausea with vomiting, unspecified (principal); R50.9 Fever, unspecified; S80.862A Insect bite (nonvenomous), left lower leg, initial encounter; W57.XXXA Bitten or stung by nonvenomous insect and other nonvenomous arthropods, initial encounter; Y92.9 Unspecified place or not applicable; Z87.891 Personal history of nicotine dependence
CPT/HCPCS: 99212; G0463

== ENCOUNTER 2019-01-07 08:10 | Emergency (ER) | payer OTHER ==
[2019-01-07 08:24] VITALS: BP 114/71
--- NOTE | 2019-01-07 08:48 | UC ---
Hand/Wrist HPI - HPI Summary HPI Summary: Pt presents with c/o left wrist pain s/p falling while ice skating last night and pt put left arm/hand/wrist out to break fall. - History Of Current Complaint Chief Complaint: UCUpperExtremity Stated Complaint: LEFT WRIST INJURY Time Seen by Provider: 01/07/19 08:18 Hx Obtained From: Patient Hx Last Menstrual Period: 01/06/19 ?: No Onset/Duration: Sudden Onset, Still Present Severity Initially: Moderate Severity Currently: Moderate Pain Intensity: 6 Character Of Pain: Dull, Aching, Stiffness Aggravating Factor(s): Movement Alleviating Factor(s): Rest Associated Signs And Symptoms: Positive: Negative Related History: Dominant Hand Right - Risk Factors Compartment Syndrome Risk Factors: Pain - Allergies/Home Medications Allergies/Adverse Reactions: Allergies Allergy/AdvReac Type Severity Reaction Status Date / Time medical tape Allergy Rash Uncoded 01/07/19 08:24 PMH/Surg Hx/FS Hx/Imm Hx Previously Healthy: Yes - Surgical History Surgical History: Yes Surgery Procedure, Year, and Place: t/a at age 7-8 yrs,. BONE MARROW REMOVED AT AGE 12 TO DX CDA TYPE 1 [place]. RIGHT HIP SURGERY, OCTOBER 19, 2017 - Family History Known Family History: Positive: Hypertension, Other - Hem disorder Negative: Diabetes Family History: family history poisitive for asthma and COPD - Social History Lives: With Family Alcohol Use: Occasionally Substance Use Type: None Smoking Status (MU): Former Smoker Have You Smoked in the Last Year: Yes When Did the Patient Quit Smoking/Using Tobacco: 10/2017 - Immunization History Most Recent Influenza Vaccination: NOT IN 2017 Vaccination Up to Date: Yes Review of Systems All Other Systems Reviewed And Are Negative: Yes Constitutional: Positive: Negative Skin: Positive: Negative Eyes: Positive: Negative ENT: Positive: Negative Respiratory: Positive: Negative Cardiovascular: Positive: Negative Gastrointestinal: Positive: Negative Genitourinary: Positive: Negative Motor: Positive: Decreased ROM - left wrist Neurovascular: Positive: Negative Musculoskeletal: Positive: Arthralgia - left wrist, Decreased ROM - left wrist, Myalgia - left wrist Neurological: Positive: Negative Psychological: Positive: Negative Is Patient Immunocompromised?: No Physical Exam Triage Information Reviewed: Yes Appearance: Well-Appearing Vital Signs: Initial Vital Signs Temp 98.4 F 01/07/19 08:19 Pulse 98 01/07/19 08:19 Resp 16 01/07/19 08:19 BP 114/71 01/07/19 08:19 Pulse Ox 97 01/07/19 08:19 Vital Signs Reviewed: Yes Eye Exam: Normal ENT: Positive: Hearing grossly normal Dental Exam: Normal Neck exam: Normal Respiratory: Positive: No respiratory distress Musculoskeletal: Positive: Strength Limited @ - left wrist, ROM Limited @ - left wrist Neurological Exam: Normal Psychological Exam: Normal Skin Exam: Normal Diagnostics - Radiology No standard instances Radiology Interpretation Completed By: Radiologist - Environmental Compliance Manager: Chuck Nuno Daniel, ([id number]) Runner On: OMI (NUANCE) Report Date: 01/07/2019 08:35:00 Report Status: Final Start of Report Content ====== Patient Name: LISET KWOK Medical Record#: [id number] Ordering Physician: Lilibeth Granados NP Acct.#: [id number] : 1995 Age: 23 Sex: F Location: [facility] Exam Date: 01/07/19 0835 ADM Status: [facility] ER Order Information: WRIST LEFT 3+ VWS Accession Number: [id number] CPT: 63484 HISTORY: FOOSH . COMPARISONS: None relevant available at the time of dictation. VIEWS: 4, Frontal, lateral, and oblique views of the left wrist FINDINGS: BONE DENSITY: Normal. BONES: There is no displaced fracture. JOINTS: There is no arthropathy. ALIGNMENT: There is no dislocation. SOFT TISSUES: Unremarkable. OTHER FINDINGS: None. IMPRESSION: NO ACUTE OSSEOUS INJURY. IF SYMPTOMS PERSIST, RECOMMEND REPEAT IMAGING. <Electronically signed by Chuck Nuno MD in OV > 01/07/19848 Dictated By: Chuck Nuno MD Dictated Date/Time: 847 Transcribed Date/Time: 01/07/19847 Copy to: CC:Lilibeth Granados NP; Ursula KNIGHT; Dany Davis MD Imaging - [facility] - [facility] - [facility] [address] [facility] [address] [place], [place] [id number] [place] [id number] [place] [id number] ph ([phone]) ph ([phone]) ph ([phone]) End of Report Content Hand/Wrist Course/Dx - Differential Dx/Diagnosis Differential Diagnosis/HQI/PQRI: Contusion, Fracture, Sprain, Strain Provider Diagnosis: Left wrist sprain Discharge ED - Sign-Out/Discharge Documenting (check all that apply): Patient Departure All imaging exams completed and their final reports reviewed: Yes - Discharge Plan Condition: Stable Disposition: HOME Patient Education Materials: Wrist Sprain (ED), Safe Use of NSAIDs (ED) Forms: *Work Release Referrals: Gary Mckinnon MD [Medical Doctor] - If Needed Ursula Rivera PA [Primary Care Provider] - If Needed Additional Instructions: Please follow up with your PCP as needed. If your symptoms do not improve, please follow up with an orthopedic provider as needed. - Billing Disposition and Condition Condition: STABLE Disposition: Home
== END 2019-01-07 09:09 | disposition home or self-care (01) ==
LOC: UCCORT 08:10
DX: S63.502A Unspecified sprain of left wrist, initial encounter (principal); W19.XXXA Unspecified fall, initial encounter; Y93.21 Activity, ice skating; Y92.9 Unspecified place or not applicable; Z87.891 Personal history of nicotine dependence
CPT/HCPCS: 99211; G0463

== ENCOUNTER 2019-04-13 12:58 | Emergency (ER) | payer SELFPAY ==
[2019-04-13 13:58] VITALS: BP 116/67
--- NOTE | 2019-04-13 14:35 | UC ---
Throat Pain/Nasal Vivek HPI - HPI Summary HPI Summary: 23-year-old woman comes in with a chief complaint of several days of upper respiratory tract infection symptoms. She has runny nose sore throat cough chest congestion. States [id number] medicines that helps some with the symptoms but overall she feels like she's getting worse. - History of Current Complaint Chief Complaint: UCRespiratory Stated Complaint: COUGH,SOB Time Seen by Provider: 04/13/19 14:23 Hx Last Menstrual Period: 03/12/19 Pain Intensity: 6 - Allergies/Home Medications Allergies/Adverse Reactions: Allergies Allergy/AdvReac Type Severity Reaction Status Date / Time medical tape Allergy Rash Uncoded 04/13/19 13:51 Home Medications: Home Medications Norgestimate-Ethinyl Estradiol [Love-Linyah] 1 tab PO DAILY 04/13/19 [History Confirmed 04/13/19] PMH/Surg Hx/FS Hx/Imm Hx Previously Healthy: Yes GI/ History: Gastroesophageal Reflux - Surgical History Surgical History: Yes Surgery Procedure, Year, and Place: t/a at age 7-8 yrs,. BONE MARROW REMOVED AT AGE 12 TO DX CDA TYPE 1 [place]. RIGHT HIP SURGERY, OCTOBER 19, 2017 - Family History Known Family History: Positive: Hypertension, Other - Hem disorder Negative: Diabetes Family History: family history poisitive for asthma and COPD - Social History Alcohol Use: Occasionally Substance Use Type: None Smoking Status (MU): Former Smoker Have You Smoked in the Last Year: Yes When Did the Patient Quit Smoking/Using Tobacco: 10/2017 - Immunization History Most Recent Influenza Vaccination: NOT IN 2017 Vaccination Up to Date: Yes Review of Systems All Other Systems Reviewed And Are Negative: Yes Constitutional: Positive: Other - SEE HPI Skin: Positive: Negative Eyes: Positive: Negative ENT: Positive: Sore Throat, Nasal Discharge, Sinus Congestion Respiratory: Positive: Cough, Other - SEE HPI Cardiovascular: Positive: Negative Gastrointestinal: Positive: Negative Motor: Positive: Negative Neurovascular: Positive: Negative Musculoskeletal: Positive: Negative Neurological: Positive: Negative Psychological: Positive: Negative Is Patient Immunocompromised?: No Physical Exam Triage Information Reviewed: Yes Appearance: No Pain Distress, Well-Nourished, Ill-Appearing - MILD Vital Signs: Initial Vital Signs Temp 98.5 F 04/13/19 13:53 Pulse 98 04/13/19 13:53 Resp 18 04/13/19 13:53 BP 116/67 04/13/19 13:53 Pulse Ox 97 04/13/19 13:53 Vital Signs Reviewed: Yes Eye Exam: Normal Eyes: Positive: Conjunctiva Clear ENT: Positive: Pharyngeal erythema, Nasal congestion, Nasal drainage, TMs normal Neck: Positive: Supple Respiratory: Positive: Lungs clear, Normal breath sounds, No respiratory distress Cardiovascular: Positive: RRR Musculoskeletal: Positive: Strength Intact, ROM Intact Neurological: Positive: Alert, Muscle Tone Normal Psychological: Positive: Age Appropriate Behavior Skin Exam: Normal Throat Pain/Nasal Course/Dx - Course Course Of Treatment: DISCUSSED VIRAL VERSES BACTERIAL INFECTIONS AND THE ROLE OF ANTIBIOTICS. THE PATIENT PREFERS TO BE ON ANTIBIOTICS AT THIS TIME. - Differential Dx/Diagnosis Provider Diagnosis: Upper respiratory infection Discharge ED - Sign-Out/Discharge Documenting (check all that apply): Patient Departure All imaging exams completed and their final reports reviewed: No Studies - Discharge Plan Condition: Stable Disposition: HOME Prescriptions: Amoxicillin PO (*) [Amoxicillin 500 MG CAP*] 500 mg PO TID #30 cap Patient Education Materials: Upper Respiratory Infection (ED) Forms: *Work Release Referrals: Ursula Rivera PA [Primary Care Provider] - Additional Instructions: FOLLOW UP WITH YOUR DOCTOR IF NOT COMPLETELY IMPROVED. GET REEVALUATED SOONER IF NOT IMPROVING OR WORSE OR ANY QUESTIONS OR CONCERNS. - Billing Disposition and Condition Condition: STABLE Disposition: Home
== END 2019-04-13 14:43 | disposition home or self-care (01) ==
LOC: UCCORT 12:58
DX: J06.9 Acute upper respiratory infection, unspecified (principal); Z91.09 Other allergy status, other than to drugs and biological substances; Z87.891 Personal history of nicotine dependence
CPT/HCPCS: 99212; G0463

== ENCOUNTER 2019-06-05 16:10 | Emergency (ER) | payer BC ==
--- OUTSIDE RECORDS SUMMARY | 2019-06-05 17:24 | XMS REPORT | Summary of Care ---
:1995 Author Organization [facility] Address [address] [place] [address] Care Team Providers Name Role Phone Ursula Rivera Primary Care Provider Reason for Referral Consultation (Routine) Status Reason Specialty Diagnoses / Referred By Referred To Procedures Contact Contact Hold Specialty Hematology and Diagnoses Congenital dyserythropoetic anemia, type 1 Alejandra, Hematology Services Oncology MD Ca Oncology-Adult Required [address], [place] 750 [facility] [address] Phone: [place], [place] [phone] Fax: Email: Fax: [email or web address] [phone] [facility] Reason for Visit Reason Comments Follow-up Encounter Details Date Type Department Care Team Description 05/21/[address] Sincere Roberts, [facility] for MD Ca dyserythropoetic anemia, [facility] [address] type 1 (Primary Dx) and Blood Disorders St at the [facility] [address] 750 [facility] [phone] [place], [place] [phone] (Fax) [phone] Allergies Active Allergy Reactions Severity Noted Date Comments Adhesive Tape Rash Low 05/21/2019 documented as of this encounter (statuses as of 05/25/2019) Medications Medication Sig Dispensed Refills Start Date End Date Status VENTOLIN HFA 108 0 12/18/2015 Active (90 BASE) MCG/ACT inhaler Levonorgestrel-Eth Take 1 0 Active inyl Estrad tablet by 0.15-30 MG-MCG mouth daily Oral Tablet (LEVORA 0.15/30 (28)) Citalopram Take 10 mg 0 Active Hydrobromide 20 MG by mouth Oral Tablet daily (CELEXA) Omeprazole 20 MG Take 20 mg 0 Active Oral Capsule by mouth Delayed Release daily (PriLOSEC) Ibuprofen 200 MG Take 200 mg 0 Active Oral Tablet by mouth (ADVIL,MOTRIN) every 6 (six) hours as needed for Pain norgestrel-ethinyl Take 1 0 Discontinued estradiol tablet by 0 (Discontinued by (LO/OVRAL) 0.3-30 mouth daily. 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 documented as of this encounter Last Filed Vital Signs Vital Sign Reading Time Taken Comments Blood Pressure 122/84 05/21/2019 10:24 AM EST Pulse 99 05/21/2019 10:24 AM EST Temperature 36.9 05/21/2019 10:24 AM C (98.4 EST F) Respiratory Rate 16 05/21/2019 10:24 AM EST Oxygen Saturation 96% 05/21/2019 10:24 AM EST Inhaled Oxygen Concentration - - Weight 66.2 kg (145 lb 15.1 oz) 05/21/2019 10:24 AM EST Height - - Body Mass Index 26.48 02/16/2016 11:00 AM EST documented in this encounter Progress Notes Ca Roberts MD - 05/21/2019 10:00 AM EST Tonja Sayda Aiken is a 23 y.o. who returns today accompanied by a friend for follow-up of Type I CDA(congenital dyserythropoietic anemia) with her only disease manifestation of macrocytosis and mild intermittent hyperbilirubinemia. She has not had any anemia, PRBC transfusions or splenomegaly. She has been noticing jaundice recently (actually noted by boyfriend) which concerned her prompting re-evaluation after multiple missed appointments (she was last seen in this office (02/2016). She denies RUQ pain though does get lower abdominal pain after eating greasy foods which she avoids. She is living in [place] with her boyfriend. 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 She graduated from high school. She drinks alchohol daily with 2-3 beers per day and also vapes nictotine.No marijuana use. No other drug use. Sexually active with OCP for control. She states her father and paternal aunt have "hemochromatosis". Her father should be getting regular phlebotomy but is non-compliant with follow-up. MEDICATIONS: Current Outpatient Medications: Citalopram Hydrobromide 20 MG Oral Tablet (CELEXA), Take 10 mg by mouth daily, Disp: , Rfl: Levonorgestrel-Ethinyl Estrad 0.15-30 MG-MCG Oral Tablet (LEVORA 0.15/ 30 (28)), Take 1 tablet by mouth daily, Disp: , Rfl: Omeprazole 20 MG Oral Capsule Delayed Release (PriLOSEC), Take 20 mg by mouth daily, Disp: ,Rfl: Ibuprofen 200 MG Oral Tablet (ADVIL,MOTRIN), Take 200 mg by mouth every 6 (six) hours as needed for Pain, Disp: , Rfl: norgestrel-ethinyl estradiol (LO/OVRAL) 0.3-30 MG-MCG per tablet, Take 1 tablet by mouth daily., Disp: , Rfl: VENTOLIN HFA 108 (90 BASE) MCG/ACT inhaler, , Disp: , Rfl: REVIEW OF SYSTEMS: See HPI, a 12 pt review of systems was otherwise negative. Patient's medications, allergies, past medical, surgical, social and family histories were reviewed. PHYSICAL EXAMINATION: Vitals: 05/21/19 1024 BP: 122/84 Pulse: 99 Resp: 16 Temp: 36.9 C (98.4 F) TempSrc: Oral SpO2: 96% Weight: 66.2 kg (145 lb 15.1 oz) Body surface area is 1.71 meters squared. Body mass index is 26.48 kg/m. Current BMI classifies her as overweight (BMI > 25 to 29.9) She is a well-developed, well-nourished, nontoxic young woman in no acute distress. Skin was inspected and palpated, and no lesions were identified. She had normal lids, sclerae, conjunctivae, PERRL, EOMI. No jaundice noted on exam today. Tympanic membranes and canals were normal bilaterally. Lips, teeth, gums and oropharynx unremarkable. Neck was supple without palpable masses. There is no significant cervical, axillary nor inguinal adenopathy. She had normal respiratory effort, with clear lungs bilaterally. Normal cardiac rate and rhythm , S1, S2, without an audible murmur. She had normal peripheral perfusion. No edema was noted. Her abdomen was soft, nontender, no hepatosplenomegaly or palpable masses. She was oriented and mood appropriate. Gait, nails, and tone within normal limits. Examination of her extremities was unremarkable. LABORATORY INVESTIGATIONS: Results for orders placed or performed during the hospital encounter of 05/21/19 Iron and TIBC Result Value Ref Range Iron 200 (H) 37 - 145 ug/dl Transferrin Serum 221 200 - 360 mg/dL Total Fe Bind Cap 307 228 - 428 ug/dl % Fe Saturation 65.0 (H) 20 - 55 % CBC and differential Result Value Ref Range White Blood Cell 4.5 4 - 10 10*3/uL Red Blood Cell 2.84 (L) 4.1 - 5.3 10*6/uL Hemoglobin 13.6 11.5 - 15.5 g/dL Hematocrit 37.5 36 - 45 % Mean Cell Volume 132.0 (H) 80 - 96 fL Mean Cell Hemoglobin 47.9 (H) 27 - 33 pg Mean Cell Hgb Conc 36.3 (H) 32.0 - 36.0 g/dL Red Cell Dist Width 15.7 (H) 11.5 - 14.5 % Platelet Count 251 150 - 400 10*3/uL Differential Type Manual Diff Neutrophil 53 % Lymphocyte 32 % Monocyte 11 % Basophil 1 % Abs Neutrophil 2.38 1.8 - 7.0 10*3/uL Abs Lymphocyte 1.44 1.2 - 4.0 10*3/uL Abs Monocyte 0.51 0 - 0.8 10*3/uL Abs Basophil 0.04 0 - 0.2 10*3/uL Nucleated Red Blood Cells 1 (H) 0 - 0 /100 Atypical Lymphocytes 3 % Abs Atyp Lymph 0.13 (H) 0 10*3/uL Macrocytosis 2+ Anisocytosis 1+ Bilirubin, direct Result Value Ref Range Bilirubin, Direct 0.2 <0.3 mg/dL Ferritin Level Result Value Ref Range Ferritin 77 13 - 150 ng/ml IMPRESSION/PLAN: Congenital Dyserythropoeitic Anemia Type I. Her only disease manifestations to date have been impressive macrocytosis (worsens with age) and minimal increased serum bilirubin. She has never required transfusional support and has not had clinical splenomegaly, which can be associated with this disease. Her hemoglobin remains stable and is normal. A reticulocyte was ordered by not run and anticipatethis would be elevated. The increase in the serum iron is also due to her disease since she has increased uptake from GI tract. The most accurate reflection of iron storage is the serum ferritin. 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 Therapy exists with interferon for persons with type 1 CDA with worsening anemia, splenomegaly however she does not require treatment at this time. It is imperative to monitor for iron overload since this may cause significant organtoxicity and generally recommended to phlebotomize for ferritin > 100 ( since she is not anemic).If she were to develop anemia, increases in serum ferritin would need to be treated with iron overload agents. Her serum ferritin is uptrending very slowly over the years and remains < 100 and therefore no intervention is required. Given her age and lack of understanding of her disease, the majority of today's encounter was spent discussing the pathophysiology of CDA Type 1 with shortened red cell survival (hence the increase intermittently in her bilirubin) and need for follow for iron overload due to increased GI absorption aswell as monitoring /surveillance for complications. Her disease was diagnosed by bone marrow aspiration and her brother has the same. I think it is very likely that her father and paternal aunt have CDA type 1 rather than classical hemochromatosis though could understand the confusion given lack of anemia with excellent compensation. I discussed with Tonja that with time, she continues at risk for iron overload which if left untreated can have serious manager intermediate effects on vital organs such as her liver and heart. We discussed that typically serum ferritins are followed and if >100 would indicate need for phlebotomy (which ismanagement of classical hemochromatosis). We discussed her increased risk of gallstones and splenomegaly with increased age though also discussed that not all people with gallstones require removal ofthe gall bladder. She was very appreciative of this information and asked excellent questions. Given her age and lifelong illness, I suggested referral to adult elementary school band director for ongoing care and she was in agreement. She preferred to see someone at the academic center rather than within her community and a referral was made. I also discussed her alcohol intake and vaping both of which are detrimental to her health. Total time: 30 minutes with >50% spent counseling regarding disease pathophysiology, complications, therapies and need for ongoing follow-up. documented in this encounter Plan of Treatment Date Type Specialty Care Team Description 09/05/2019 Office Visit Hematology and Oncology Ca Roberts MD [address] [place] [address] Pam Rascon MD [address], [place] [id number] Name Type Priority Associated Diagnoses Order Schedule Iron and TIBC Lab STAT Congenital 10 Occurrences dyserythropoetic anemia, starting 05/21/2019 type 1 until 11/21/2019, 1 completed Ferritin Level Lab STAT Congenital Ordered: 05/21/2019 dyserythropoetic anemia, type 1 Bilirubin, direct Lab STAT Congenital 5 Occurrences dyserythropoetic anemia, starting 05/21/2019 type 1 until 05/21/2022, 1 completed Reticulocytes Lab STAT Congenital Ordered: 05/21/2019 dyserythropoetic anemia, type 1 Comprehensive Metabolic Lab STAT Congenital Ordered: 05/21/2019 Panel dyserythropoetic anemia, type 1 Name Type Priority Associated Diagnoses Order Schedule Ambulatory Outpatient Routine Congenital Ordered: referral to Referral dyserythropoetic anemia, 05/21/2019 Hematology / type 1 Oncology Health Maintenance Due Date Last Done Comments DTaP,Tdap,and Td Vaccines (1 2004 - Tdap) HPV Vaccines (1 - Female 2008 2-dose series) HIV Screening 2010 Chlamydia Screening 2013 MMR Vaccines (1 of 1 - 03/05/2015 Standard series) Varicella Vaccines (1 of 2 - 03/05/2015 2-dose childhood series) Cervical Cancer Screening 3 2018 years Influenza Vaccine 01/09/2019 02/05/2015, 02/21/2013 Pneumococcal Vaccine: 65+ 2062 Years (1 of 2 - PCV13) HIB Vaccines Aged Out No longer eligible based on patient's age to complete this topic Hepatitis A Vaccines Aged Out No longer eligible based on patient's age to complete this topic Hepatitis B Vaccines Aged Out No longer eligible based on patient's age to complete this topic IPV Vaccines Aged Out No longer eligible based on patient's age to complete this topic Pneumococcal Vaccine: Aged Out No longer eligible based Pediatrics (0 to 5 Years) and on patient's age to At-Risk Patients (6 to 64 complete this topic Years) documented as of this encounter Procedures Procedure Name Priority Date/Time Associated Diagnosis Comments TOTAL FE BINDING Timed 05/21/2019 10:49 Congenital Results for this CAPACITY AM EST dyserythropoetic procedure are in anemia, type 1 the results section. CBC AND DIFFERENTIAL Timed 05/21/2019 10:49 Congenital Results for this AM EST dyserythropoetic procedure are in anemia, type 1 the results section. FERRITIN LEVEL Routine 05/21/2019 10:49 Results for this AM EST procedure are in the results section. BILIRUBIN, DIRECT Timed 05/21/2019 10:49 Congenital Results for this AM EST dyserythropoetic procedure are in anemia, type 1 the results section. documented in this encounter Results Ferritin Level (05/21/2019 10:49 AM EST) Ferritin 77 13 - 150 ng/ml [facility] Pathology Specimen Plasma Performing Organization Address City/State/Zipcode Phone Number [facility] [address] [place] [address] [facility] [address] [place] [address] Pathology CBC and differential (05/21/2019 10:49 AM EST) White Blood Cell 4.5 4 - 10 10*3/uL [facility] Pathology Red Blood Cell 2.84 (L) 4.1 - 5.3 [facility] 10*6/uL [facility] Pathology Hemoglobin 13.6 11.5 - 15.5 [facility] g/dL [facility] Pathology Hematocrit 37.5 36 - 45 % [facility] Pathology Mean Cell Volume 132.0 (H) 80 - 96 fL [facility] Mean Cell Hemoglobin 47.9 (H) 27 - 33 pg [facility] Mean Cell Hgb Conc 36.3 (H) 32.0 - 36.0 [facility] g/dL [facility] Pathology Red Cell Dist Width 15.7 (H) 11.5 - 14.5 % [facility]ology Platelet Count 251 150 - 400 [facility] 10*3/uL [facility]ology Differential Type Manual Diff [facility] Neutrophil 53 % [facility] Lymphocyte 32 % [facility] Monocyte 11 % [facility] Basophil 1 % [facility] Abs Neutrophil 2.38 1.8 - 7.0 [facility] 10*3/uL [facility] Abs Lymphocyte 1.44 1.2 - 4.0 [facility] 10*3/uL [facility] Abs Monocyte 0.51 0 - 0.8 [facility] 10*3/uL [facility] Abs Basophil 0.04 0 - 0.2 [facility] 10*3/uL [facility] Pathology Nucleated Red Blood 1 (H) 0 - 0 [facility] Cells /100{WBCs} [facility] Pathology Atypical Lymphocytes 3 % [facility] Pathology Abs Atyp Lymph 0.13 (H) 0 10*3/uL [facility] Pathology Macrocytosis 2+ [facility]ology Anisocytosis 1+ [facility] Specimen EDTA Whole Blood Performing Organization Address City/[facility] Phone Number [facility] [address] [place] [address] [facility] [address] [place] [address] Pathology Bilirubin, direct (05/21/2019 10:49 AM EST) Bilirubin, Direct 0.2 <0.3 mg/dL [facility] Pathology Specimen Plasma Performing Organization Address [facility] Phone Number [facility] [address], [place] [phone] [facility] [address] [place] [address] Pathology Iron and TIBC (05/21/2019 10:49 AM EST) Iron 200 (H) 37 - 145 ug/dl [facility] Pathology Transferrin Serum 221 200 - 360 mg/dL [facility] Pathology Total Fe Bind Cap 307 228 - 428 ug/dl [facility] Pathology % Fe Saturation 65.0 (H) 20 - 55 % [facility] Pathology Specimen Plasma Performing Organization Address City/State/Zipcomt Phone Number [facility] [address] [place] [address] [facility] [address] [place] [address] Pathology documented in this encounter Visit Diagnoses Diagnosis Congenital dyserythropoetic anemia, type 1 - Primary Other specified anemias documented in this encounter
[2019-06-05 17:38] VITALS: BP 124/73
--- NOTE | 2019-06-05 18:17 | UC ---
Shoulder Pain HPI - HPI Summary HPI Summary: 24-year-old female who states she awakened this morning with some right shoulder pain. She has been lifting weights recently however has had no specific injury. - History of Current Complaint Chief Complaint: UCUpperExtremity Stated Complaint: RT SHOULDER PAIN Time Seen by Provider: 06/05/19 17:32 Hx Obtained From: Patient Hx Last Menstrual Period: 05/12/19 ?: No Onset/Duration: Gradual Onset Timing: Constant Severity Initially: Moderate Severity Currently: Moderate Pain Intensity: 9 Character: Dull, Aching Aggravating Factor(s): Movement Alleviating Factor(s): Rest Associated Signs And Symptoms: Positive: Negative Related History: Dominant Hand Right - Allergies/Home Medications Allergies/Adverse Reactions: Allergies Allergy/AdvReac Type Severity Reaction Status Date / Time lavender (Lavandula Allergy Unknown Difficulty Verified 06/05/19 17:27 angustifolia) Breathing medical tape Allergy Rash Uncoded 06/05/19 17:26 Home Medications: Home Medications Citalopram TAB* [Celexa TAB*] 10 mg PO DAILY 04/29/18 [History Confirmed ] Omeprazole 20 mg PO BID 04/29/18 [History Confirmed 06/05/19] Cyclobenzaprine TAB* [Flexeril 10 MG TAB*] 10 mg PO TID PRN #15 tab 06/05/19 [Rx ] Ibuprofen TAB* [Advil TAB*] 800 mg PO Q6H PRN 06/05/19 [History Confirmed ] Ibuprofen TAB* [Motrin TAB* 600 MG] 600 mg PO Q8H PRN #21 tab 06/05/19 [Rx] Levonorgestrel-Ethin Estradiol [Levora 0.15/30-28 0.15-30 mg-Mcg] 1 tab PO DAILY 06/05/19 [History Confirmed 06/05/19] PMH/Surg Hx/FS Hx/Imm Hx Previously Healthy: Yes Respiratory History: Asthma GI/ History: Gastroesophageal Reflux Psychological History: Anxiety - Surgical History Surgical History: Yes Surgery Procedure, Year, and Place: t/a at age 7-8 yrs,. BONE MARROW REMOVED AT AGE 12 TO DX CDA TYPE 1 [place]. RIGHT HIP SURGERY, OCTOBER 19, 2017 - Family History Known Family History: Positive: Hypertension, Other - Hem disorder Negative: Diabetes Family History: family history poisitive for asthma and COPD - Social History Alcohol Use: Occasionally Substance Use Type: None Smoking Status (MU): Former Smoker Have You Smoked in the Last Year: Yes When Did the Patient Quit Smoking/Using Tobacco: 10/2017 - Immunization History Most Recent Influenza Vaccination: NOT IN 2017 Vaccination Up to Date: Yes Review of Systems All Other Systems Reviewed And Are Negative: Yes Musculoskeletal: Positive: Other: - Right shoulder pain more to the anterior right shoulder. Is Patient Immunocompromised?: No Physical Exam Triage Information Reviewed: Yes Appearance: Well-Appearing, No Pain Distress, Well-Nourished Vital Signs: Initial Vital Signs Temp 98.9 F 06/05/19 17: Pulse 79 06/05/19 17:29 Resp 16 06/05/19 17: BP 124/73 06/05/19 17: Pulse Ox 100 06/05/19 17:29 Vital Signs Reviewed: Yes Eyes: Positive: Conjunctiva Clear Respiratory: Positive: Chest non-tender, Lungs clear, Normal breath sounds, No respiratory distress, No accessory muscle use Cardiovascular: Positive: RRR, No Murmur, Pulses Normal, Brisk Capillary Refill Musculoskeletal: Positive: Strength Intact, ROM Intact, Other: - Patient is able to put her arm through complete range of motion slowly. Good peripheral pulses, neuro sensation and capillary refill. No deformity, erythema, bruising or swelling is noted. She has more pain on palpation to the anterior right shoulder. Neurological Exam: Normal Psychological Exam: Normal Skin Exam: Normal Shoulder Course/Dx - Course Course Of Treatment: Right shoulder x-ray: Indication: RIGHT shoulder pain following recent weight lifting. Comparison: No relevant prior exams available on the [facility] PACS for comparison. Technique: Internal rotation AP, external rotation Grashey, scapular Y, axillary views RIGHT shoulder REPORT AND IMPRESSION: #. Negative for fracture or focal osseous lesions. #. Normal acromioclavicular and glenohumeral joint alignment. #. Negative for appreciable arthropathic change. # . Negative for calcific tendinopathy. #. Unremarkable soft tissue contours. The patient is comfortable here. She was given an arm sling for comfort however I advised her every couple hours to take her arm out of the sling and put it through some mild range of motion. - Differential Dx/Diagnosis Provider Diagnosis: Right shoulder strain Discharge ED - Sign-Out/Discharge Documenting (check all that apply): Patient Departure All imaging exams completed and their final reports reviewed: Yes - Discharge Plan Condition: Good Disposition: HOME Prescriptions: Cyclobenzaprine TAB* [Flexeril 10 MG TAB*] 10 mg PO TID PRN #15 tab PRN Reason: Pain - Mild Ibuprofen TAB* [Motrin TAB* 600 MG] 600 mg PO Q8H PRN #21 tab PRN Reason: Pain - Mild Patient Education Materials: Muscle Strain (DC) Forms: *Work Release Referrals: Ursula Rivera PA [Primary Care Provider] - Additional Instructions: Avoid movements that cause pain, apply heat to the sore area. Follow-up with your primary care provider if no improvement in 3 or 4 days. About every one or 2 hours take your arm out of the sling and put it through some mild range of motion exercises. - Billing Disposition and Condition Condition: GOOD Disposition: Home
== END 2019-06-05 18:25 | disposition home or self-care (01) ==
LOC: UCCORT 16:10
DX: S46.911A Strain of unspecified muscle, fascia and tendon at shoulder and upper arm level, right arm, initial encounter (principal); J45.909 Unspecified asthma, uncomplicated; K21.9 Gastro-esophageal reflux disease without esophagitis; F41.9 Anxiety disorder, unspecified; Z91.09 Other allergy status, other than to drugs and biological substances; Z79.899 Other long term (current) drug therapy; Z87.891 Personal history of nicotine dependence; X58.XXXA Exposure to other specified factors, initial encounter; Y92.9 Unspecified place or not applicable
CPT/HCPCS: 99213; G0463